=== PATIENT | female | born 1930 | race Caucasian/White ===

== ENCOUNTER 2016-05-29 16:57 | Inpatient (IN) | payer MEDICARE, BC ==
--- NOTE | 2016-05-29 17:45 | EDM.PDOC ---
ED HISTORY OF PRESENT ILLNESS - General Chief Complaint: Respiratory Problem Stated Complaint: UNK Time Seen by Provider: 05/29/16 17:25 Source of Information: Reports: Patient, EMS History Limitations: Reports: No limitations - History of Present Illness INITIAL COMMENTS - FREE TEXT/NARRATIVE: HISTORY AND PHYSICAL: History of present illness: Patient is an 85-year-old female is a resident [place] who presents today via ambulance for stated confusion and has difficulty breathing. I talked to the patient initially and she states "I was fine until my kids made me come in". She does admit that she is having some worsening shortness of breath. She also mentions sometimes when she is eating she feels like she has a bubble in her throat and she has to stop eating. She feels like she has some issue with her abdomen and hasn't had a bowel movement for a while. When family arrived son told me that [facility] and she seemed blue and he had to sit her up and get her to breathe through her nose. I think she has been using nasal cannula at the facility but she mostly breathes through her mouth. 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 The son states she also saw Dr. Randhawa this week and either was put on antibiotics her antibiotics were changed for a left lateral ankle pressure ulcer. Per Carlos, she is a code 3. Review of systems: As per history of present illness and below otherwise all systems reviewed and negative. Past medical history: As per history of present illness and as reviewed below otherwise noncontributory. Surgical history: As per history of present illness and as reviewed below otherwise noncontributory. Social history: No reported history of drug or alcohol abuse. Family history: As per history of present illness and as reviewed below otherwise noncontributory. Physical exam: HEENT: No evidence of trauma to the face or scalp. Pupils are equal and reactive. Moist mucous membranes. Lungs: Patient seems to be short of breath and speaks in short sentences. Coarse , wet breath sounds throughout. Heart:Regular rate and rhythm. Abdomen: Soft, nondistended, no significant tenderness. Pelvis: Stable nontender. Genitourinary: Deferred. Rectal: Deferred. Extremities: No pedal edema. Left lateral ankle decubitus ulcer. No cellulitis. Neuro: Awake, alert, oriented. No altered mental status per family and she was answering questions appropriately and had no apparent deficits. Diagnostics: CBC, CMP, UA, Chest xray, INR Therapeutics: Duoneb, zosyn, fluids Impression: Pneumonia Plan: I spoke with the Dr. Medrano about the patient and he was willing to admit her as inpatient. I talked to the family about this and the patient. The family was very on board with this plan and patient verbalized her consent as well. Definitive disposition and diagnosis as appropriate pending reevaluation and review of above. - Related Data Allergies/ADRs: Allergies Allergy/AdvReac Type Severity Reaction Status Date / Time aspirin Allergy Unknown Verified 11/23/15 12:19 betamethasone Allergy Unknown Verified 11/23/15 12:19 [From Celestone] betamethasone sodium Allergy Unknown Verified 11/23/15 12:19 phosphate [From Celestone] Latex, Natural Rubber Allergy Rash Verified 11/23/15 12:19 morphine Allergy Disorientat Verified 03/07/16 11:15 ion soluspan Allergy Other Uncoded 03/07/16 10:31 Home Meds: Home Meds Ascorbate Calcium [Vitamin C] 500 mg PO DAILY 08/15/13 [History] Calcium Carb & Citrate/Vit D3 [Calcium + Vitamin D3 Caplet] 2 each PO BID [History] Docusate Sodium [Colace] 100 mg PO BID 08/15/13 [History] Furosemide [Lasix] 40 mg PO DAILY 08/15/13 [History] Gabapentin [Neurontin] 600 mg PO BEDTIME 08/15/13 [History] Losartan [Cozaar] 100 mg PO DAILY 08/15/13 [History] MV-Mn/Iron/FA/Herbal Cmplx#190 [Vitamin D3 Complete Caplet] 1 each PO DAILY 12/19 [History] Potassium Gluconate [Potassium] 99 mg PO DAILY 08/15/13 [History] Sertraline [Zoloft] 100 mg PO BID 08/15/13 [History] Warfarin [Coumadin] 2.5 mg PO DAILY 08/15/13 [History] Spironolactone [Aldactone] 25 mg PO DAILY 10/08/13 [History] Metoprolol Tartrate [Lopressor] 25 mg PO BID 07/18/14 [History] Levothyroxine Sodium [Unithroid] 200 mcg PO ASDIRECTED 11/23/15 [History] Gabapentin [Neurontin] 300 mg PO DAILY 03/07/16 [History] Hydrocodone/Acetaminophen [Hydrocodon-Acetaminophn 10-325] 1 tab PO Q6H PRN [History] Levothyroxine Sodium 300 mcg PO ASDIRECTED 03/07/16 [History] Multivitamin with Minerals [Multiple Vitamin] 1 tab PO DAILY 03/07/16 [History] Mv-Mn/FA/Vit K/Lycop/Lut/Zeaxa [Ocuvite Eye + Multi Tablet] 1 each PO DAILY [History] fentaNYL [Fentanyl] 12 mcg TD ASDIRECTED PRN 03/07/16 [History] Albuterol [Ventolin HFA] 2 puff INH Q4H 05/29/16 [History] Azithromycin [IJD: Azithromycin] 250 mg PO BEDTIME 05/29/16 [History] Past Medical History Cardiovascular History: Reports: Afib, Pacemaker Respiratory History: Reports: Other (see below) Other Respiratory History: left upper lobe cancer Gastrointestinal History: Reports: Cholelithiasis, GERD 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 History: hepatitis unknown type 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: Musculoskeletal History: Reports: Fibromyalgia, Osteoarthritis, Osteoporosis, Other (see below) Other Musculoskeletal History: compression fx of back Psychiatric History: Reports: Anxiety Hematologic History: Reports: Other (see below) Other Hematologic History: un specified thromocytopenia Oncologic (Cancer) History: Reports: Lung - Infectious Disease History Infectious Disease History: Reports: Chicken pox, Measles, Mumps, Pertussis ( whooping cough), Other (see below) Other Infectious Disease History: infectious hepatitis - Past Surgical History GI Surgical History: Reports: Appendectomy, Cholecystectomy Female Surgical History: Reports: Hysterectomy Endocrine Surgical History: Reports: Thyroidectomy Musculoskeletal Surgical History: Reports: Hip replacement, Knee replacement Social & Family History - Family History Family Medical History: Noncontributory - Tobacco Use Smoking Status *Q: Never Smoker Years of Tobacco use: 17 Packs/Tins Daily: 0.2 Used Tobacco, but Quit: Yes Month Tobacco Last Used: 07/1987 Second Hand Smoke Exposure: No - Caffeine Use Caffeine Use: Reports: None - Alcohol Use Days Per Week of Alcohol Use: 0 - Recreational Drug Use Recreational Drug Use: No ED ROS GENERAL - Review of Systems Review Of Systems: ROS reveals no pertinent complaints other than HPI. ED EXAM, GENERAL - Physical Exam Exam: See Below (See HPI) Course - Vital Signs Last Recorded V/S: Last Vital Signs Temp 37.1 C 05/29/16 17:11 Pulse 80 05/29/16 19:24 Resp 18 05/29/16 19:24 BP 144/69 H 05/29/16 17:11 Pulse Ox 97 05/29/16 19:24 - Orders/Labs/Meds Orders: Active Orders 24 hr Category Date Time Status RT Aerosol Therapy [RC] ASDIRECTED Care 05/29/16 19:39 Ordered Chest 2V [CR] Stat Exams 05/29/16 17:35 Ordered INR,PT,PROTHROMBIN TIME [COAG] Stat Lab 05/29/16 19:38 Ordered Piperacillin/Tazobactam [Piperacil-Tazobact] 3.375 gm Med 05/29/16 19:39 Active Sodium Chloride 0.9% [Normal Saline] 50 ml IV ONETIME Sodium Chloride 0.9% [Normal Saline] 1,000 ml Med 05/29/16 19:45 Ordered IV STAT Medication Orders Piperacillin Sod/Tazobactam (Sod 3.375 gm/ Sodium Chloride) 50 mls @ 100 mls/ hr IV ONETIME ONE Stop: 05/29/16 20:08 Sodium Chloride (Normal Saline) 1,000 mls @ 500 mls/hr IV STAT BRANT Labs: Laboratory Tests 05/29/16 05/29/16 05/29/16 Range/Units 17:26 17:37 17:37 WBC 8.40 (4.0-11.0) K/uL RBC 3.80 L (4.30-5.90) M/uL Hgb 11.3 L (12.0-16.0) g/dL Hct 37.2 (36.0-46.0) % MCV 97.9 (80.0-98.0) fL MCH 29.7 (27.0-32.0) pg MCHC 30.4 L (31.0-37.0) g/dL RDW Std Deviation 60.1 (28.0-62.0) fl RDW Coeff of Ron 17 H (11.0-15.0) % Plt Count 123 L (150-400) K/uL MPV 10.60 (7.40-12.00) fL Neut % (Auto) 71.8 (48.0-80.0) % Lymph % (Auto) 13.5 L (16.0-40.0) % [place] % (Auto) 13.3 (0.0-15.0) % Eos % (Auto) 1.2 (0.0-7.0) % Baso % (Auto) 0.2 (0.0-1.5) % Neut # (Auto) 6.0 H (1.4-5.7) K/uL Lymph # (Auto) 1.1 (0.6-2.4) K/uL [place] # (Auto) 1.1 H (0.0-0.8) K/uL Eos # (Auto) 0.1 (0.0-0.7) K/uL Baso # (Auto) 0.0 (0.0-0.1) K/uL Nucleated RBC % 0.0 /100WBC Nucleated RBCs # 0 K/uL Lactate 1.0 (0.20-2.00) mmol/L Sodium (136-146) mmol/L Potassium (3.5-5.1) mmol/L Chloride (98-110) mmol/L Carbon Dioxide (21-31) mmol/L BUN (6.0-23.0) mg/dL Creatinine (0.6-1.5) mg/dL Est Cr Clr Drug Dosing Estimated GFR (MDRD) ml/min Glucose (60-110) mg/dL Calcium (8.8-10.8) mg/dL Total Bilirubin (0.1-1.5) mg/dL AST (5-40) IU/L ALT (8-54) IU/L Alkaline Phosphatase (40-150) Total Protein (6.0-8.0) g/dL Albumin (3.4-4.8) g/dL Globulin (2.0-3.5) g/dL Albumin/Globulin Ratio (1.3-2.8) Urine Color YELLOW Urine Appearance CLEAR Urine pH 5.5 (5.0-8.0) Ur Specific Shepherd 1.020 (1.001-1.035) Urine Protein NEGATIVE (NEGATIVE) mg/dL Urine Glucose (UA) NEGATIVE (NEGATIVE) mg/dL Urine Ketones NEGATIVE (NEGATIVE) mg/dL Urine Occult Blood NEGATIVE (NEGATIVE) Urine Nitrite NEGATIVE (NEGATIVE) Urine Bilirubin NEGATIVE (NEGATIVE) Urine Urobilinogen 0.2 (<2.0) EU/dL Ur Leukocyte Esterase NEGATIVE (NEGATIVE) Urine RBC 0-2 (0-2/HPF) Urine WBC 1-2 (0-5/HPF) Ur Epithelial Cells FEW (NONE-FEW) Urine Bacteria FEW (NEGATIVE) Hyaline Casts 1-2 (0-2/LPF) 05/29/16 Range/Units 17:37 WBC (4.0-11.0) K/uL RBC (4.30-5.90) M/uL Hgb (12.0-16.0) g/dL Hct (36.0-46.0) % MCV (80.0-98.0) fL MCH (27.0-32.0) pg MCHC (31.0-37.0) g/dL RDW Std Deviation (28.0-62.0) fl RDW Coeff of Ron (11.0-15.0) % Plt Count (150-400) K/uL MPV (7.40-12.00) fL Neut % (Auto) (48.0-80.0) % Lymph % (Auto) (16.0-40.0) % [place] % (Auto) (0.0-15.0) % Eos % (Auto) (0.0-7.0) % Baso % (Auto) (0.0-1.5) % Neut # (Auto) (1.4-5.7) K/uL Lymph # (Auto) (0.6-2.4) K/uL [place] # (Auto) (0.0-0.8) K/uL Eos # (Auto) (0.0-0.7) K/uL Baso # (Auto) (0.0-0.1) K/uL Nucleated RBC % /100WBC Nucleated RBCs # K/uL Lactate (0.20-2.00) mmol/L Sodium 143 (136-146) mmol/L Potassium 5.0 (3.5-5.1) mmol/L Chloride 102 (98-110) mmol/L Carbon Dioxide 32 H (21-31) mmol/L BUN 39 H (6.0-23.0) mg/dL Creatinine 0.8 (0.6-1.5) mg/dL Est Cr Clr Drug Dosing TNP Estimated GFR (MDRD) > 60.0 ml/min Glucose 97 (60-110) mg/dL Calcium 8.5 L (8.8-10.8) mg/dL Total Bilirubin 0.7 (0.1-1.5) mg/dL AST 19 (5-40) IU/L ALT 19 (8-54) IU/L Alkaline Phosphatase 65 (40-150) Total Protein 6.5 (6.0-8.0) g/dL Albumin 3.3 L (3.4-4.8) g/dL Globulin 3.2 (2.0-3.5) g/dL Albumin/Globulin Ratio 1.0 L (1.3-2.8) Urine Color Urine Appearance Urine pH (5.0-8.0) Ur Specific Shepherd (1.001-1.035) Urine Protein (NEGATIVE) mg/dL Urine Glucose (UA) (NEGATIVE) mg/dL Urine Ketones (NEGATIVE) mg/dL Urine Occult Blood (NEGATIVE) Urine Nitrite (NEGATIVE) Urine Bilirubin (NEGATIVE) Urine Urobilinogen (<2.0) EU/dL Ur Leukocyte Esterase (NEGATIVE) Urine RBC (0-2/HPF) Urine WBC (0-5/HPF) Ur Epithelial Cells (NONE-FEW) Urine Bacteria (NEGATIVE) Hyaline Casts (0-2/LPF) Meds: Medications Generic Name Dose Route Start Last Admin Trade Name Freq PRN Reason Stop Dose Admin Piperacillin Sod/Tazobactam 50 mls @ 100 mls/hr 05/29/16 19:39 Sod 3.375 gm/ Sodium Chloride IV 05/29/16 20:08 ONETIME ONE Sodium Chloride 1,000 mls @ 500 mls/hr 05/29/16 19:45 Normal Saline IV STAT BRANT Discontinued Medications Generic Name Dose Route Start Last Admin Trade Name Freq PRN Reason Stop Dose Admin Hydrocodone Bitart/Acetaminophen 1 tab 05/29/16 19:05 [place] 325-10 Mg PO 05/29/16 19:06 ONETIME ONE Albuterol/Ipratropium 3 ml 05/29/16 19:38 Duoneb 3.0-0.5 Mg/3 Ml NEB 05/29/16 19:39 ONETIME ONE Piperacillin Sod/Tazobactam 50 mls @ 100 mls/hr 05/29/16 19:35 Sod 3.375 gm/ Sodium Chloride IV 05/29/16 20:04 ONETIME ONE Departure - Departure Time of Disposition: 20:10 Disposition: Admitted As Inpatient 65 Condition: good Clinical Impression: Pneumonia Qualifiers: Pneumonia type: due to unspecified organism Laterality: bilateral Lung location : unspecified part of lung Qualified Code(s): J18.9 - Pneumonia, unspecified organism Forms: ED Department Discharge - My Orders Last 24 Hours: My Active Orders 05/29/16 17:35 Chest 2V [CR] Stat 05/29/16 19:38 INR,PT,PROTHROMBIN TIME [COAG] Stat 05/29/16 19:39 RT Aerosol Therapy [RC] ASDIRECTED Piperacillin/Tazobactam [Piperacil-Tazobact] 3.375 gm Sodium Chloride 0.9% [ Normal Saline] 50 ml IV ONETIME 05/29/16 19:45 Sodium Chloride 0.9% [Normal Saline] 1,000 ml IV STAT - Assessment/Plan Last 24 Hours: My Active Orders 05/29/16 17:35 Chest 2V [CR] Stat 05/29/16 19:38 INR,PT,PROTHROMBIN TIME [COAG] Stat 05/29/16 19:39 RT Aerosol Therapy [RC] ASDIRECTED Piperacillin/Tazobactam [Piperacil-Tazobact] 3.375 gm Sodium Chloride 0.9% [ Normal Saline] 50 ml IV ONETIME 05/29/16 19:45 Sodium Chloride 0.9% [Normal Saline] 1,000 ml IV STAT
[2016-05-29 18:13] LABS: CHLORIDE,CL 102 mmol/L (98-110); SODIUM,NA 143 mmol/L (136-146)
[2016-05-29] MEDS ORDERED: Acetaminophen/HYDROcodone 325-10 MG Tab PO ONE (19:05)
[2016-05-29] MEDS ORDERED: Piperacillin/Tazobactam 3.375 GM in Sodium Chloride 0.9% 50 ML IV ONE ×2 (19:35→19:39)
[2016-05-29] MEDS ORDERED: Albuterol/Ipratropium 3.0-0.5 MG/3 ML Neb Soln NEB ONE (19:38)
[2016-05-29] MEDS ORDERED: Sodium Chloride 0.9% 1,000 ML IV SCH (19:45)
--- NOTE | 2016-05-29 21:47 | PCM.HP ---
H&P History of Present Illness - General Date of Service: 05/29/16 Admit Problem/Dx: Admission Diagnosis/Problem Admission Diagnosis/Problem Pneumonia Source of Information: Patient, Family, Old records, RN - History of Present Illness Initial Comments - Free Text/Narative: She presented to the ED today from [facility] where she was noted to have a cough for over a week. She had "rattling breathing". She had sputum production. She was diagnosed in the ED with pneumonia. She was using oxygen at the senior living before presentation today. She is feeling a bit better already. - Related Data Allergies/Adverse Reactions: Allergies Allergy/AdvReac Type Severity Reaction Status Date / Time aspirin Allergy Unknown Verified 11/23/15 12:19 betamethasone Allergy Unknown Verified 11/23/15 12:19 [From Celestone] betamethasone sodium Allergy Unknown Verified 11/23/15 12:19 phosphate [From Celestone] Latex, Natural Rubber Allergy Rash Verified 11/23/15 12:19 morphine Allergy Disorientat Verified 03/07/16 11:15 ion soluspan Allergy Other Uncoded 03/07/16 10:31 Home Medications: Home Meds Ascorbate Calcium [Vitamin C] 500 mg PO DAILY 08/15/13 [History] Calcium Carb & Citrate/Vit D3 [Calcium + Vitamin D3 Caplet] 2 each PO BID [History] Docusate Sodium [Colace] 100 mg PO BID 08/15/13 [History] Furosemide [Lasix] 40 mg PO DAILY 08/15/13 [History] Gabapentin [Neurontin] 600 mg PO BEDTIME 08/15/13 [History] Losartan [Cozaar] 100 mg PO DAILY 08/15/13 [History] MV-Mn/Iron/FA/Herbal Cmplx#190 [Vitamin D3 Complete Caplet] 1 each PO DAILY 12/19 [History] Potassium Gluconate [Potassium] 99 mg PO DAILY 08/15/13 [History] Sertraline [Zoloft] 100 mg PO BID 08/15/13 [History] Warfarin [Coumadin] 2.5 mg PO DAILY 08/15/13 [History] Spironolactone [Aldactone] 25 mg PO DAILY 10/08/13 [History] Metoprolol Tartrate [Lopressor] 25 mg PO BID 07/18/14 [History] Levothyroxine Sodium [Unithroid] 200 mcg PO ASDIRECTED 11/23/15 [History] Gabapentin [Neurontin] 300 mg PO DAILY 03/07/16 [History] Hydrocodone/Acetaminophen [Hydrocodon-Acetaminophn 10-325] 1 tab PO Q6H PRN [History] Levothyroxine Sodium 300 mcg PO ASDIRECTED 03/07/16 [History] Multivitamin with Minerals [Multiple Vitamin] 1 tab PO DAILY 03/07/16 [History] Mv-Mn/FA/Vit K/Lycop/Lut/Zeaxa [Ocuvite Eye + Multi Tablet] 1 each PO DAILY [History] fentaNYL [Fentanyl] 12 mcg TD ASDIRECTED PRN 03/07/16 [History] Albuterol [Ventolin HFA] 2 puff INH Q4H 05/29/16 [History] Azithromycin [IJD: Azithromycin] 250 mg PO BEDTIME 05/29/16 [History] Past Medical History Cardiovascular History: Reports: Afib, Pacemaker Respiratory History: Reports: Other (see below) Other Respiratory History: left upper lobe cancer Gastrointestinal History: Reports: Cholelithiasis, GERD 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 History: hepatitis unknown type 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: Musculoskeletal History: Reports: Fibromyalgia, Osteoarthritis, Osteoporosis, Other (see below) Other Musculoskeletal History: compression fx of back Neurological History: Denies: Alzheimers disease, CVA, Headaches, chronic, Parkinson's, Seizure Psychiatric History: Reports: Anxiety Endocrine/Metabolic History: Denies: Kiko's disease, Diabetes, type I, Diabetes, type II Hematologic History: Reports: Other (see below) Other Hematologic History: un specified thromocytopenia Oncologic (Cancer) History: Reports: Lung - Infectious Disease History Infectious Disease History: Reports: Chicken pox, Measles, Mumps, Pertussis ( whooping cough), Other (see below) Other Infectious Disease History: infectious hepatitis - Past Surgical History GI Surgical History: Reports: Appendectomy, Cholecystectomy Female Surgical History: Reports: Hysterectomy Endocrine Surgical History: Reports: Thyroidectomy Musculoskeletal Surgical History: Reports: Hip replacement, Knee replacement Social & Family History - Family History Family Medical History: Noncontributory - Tobacco Use Smoking Status *Q: Never Smoker Years of Tobacco use: 17 Packs/Tins Daily: 0.2 Used Tobacco, but Quit: Yes Month Tobacco Last Used: 07/1987 Second Hand Smoke Exposure: No - Caffeine Use Caffeine Use: Reports: None - Alcohol Use Days Per Week of Alcohol Use: 0 - Recreational Drug Use Recreational Drug Use: No H&P Review of Systems - Review of Systems: Review Of Systems: See Below General: Denies: fever Pulmonary: Reports: Wheezing, Cough, Sputum Cardiovascular: Denies: chest pain Gastrointestinal: Reports: Decreased appetite. Denies: Abdominal pain, Diarrhea , Distension, Flatus, Hematemesis, Hematochezia Genitourinary: Denies: dysuria, hematuria Skin: Denies: cyanosis, jaundice Neurological: Reports: Confusion (she was confused earlier today but is not usually confused. She has no known history of dementia) Review of Systems Comment:: no vomiting Exam - Exam Exam: See Below - Vital Signs Vital Signs: Last Vital Signs Temp 98.8 F 05/29/16 17:11 Pulse 86 05/29/16 20:20 Resp 18 05/29/16 20:20 BP 142/65 H 05/29/16 20:20 Pulse Ox 100 05/29/16 20:20 Weight: 100.698 kg - Exam General: alert, cooperative. No: moderate distress HEENT: EOMI Neck: supple, trachea midline Lungs: Rales, Rhonchi Cardiovascular: regular rate, regular rhythm. No: systolic murmur Abdomen: soft. No: rebound, tenderness (Female) Exam: Deferred Rectal (Female) Exam: Deferred Extremities: other (3x4 cm ulcer left lateral calf that appears clean . It is down to the muscular layer. ). No: edema Neurological: cranial nerves intact, normal speech Neuro Extensive - Motor, Sensory, Reflexes: No: facial palsy (L), facial palsy ( R), hemiplagia (L), hemiplagia (R) - Patient Data Result Diagrams: 05/29/16 17:37 05/29/16 17:37 Reece Results last 24 hrs: CXR: pacemaker noted right sided infiltrate *Q Meaningful Use (ADM) - VTE *Q VTE Criteria *Q: - Stroke *Q Stroke Criteria *Q: - AMI *Q AMI Criteria *Q: - Problem List (1) Pneumonia SNOMED Code(s): 545158175 ICD Code: J18.9 - PNEUMONIA, UNSPECIFIED ORGANISM Status: Acute Current Visit: Yes Qualifiers: Pneumonia type: due to unspecified organism Laterality: bilateral Lung location: unspecified part of lung Qualified Code(s): J18.9 - Pneumonia, unspecified organism (2) Stasis ulcer Status: Acute Current Visit: Yes Problem List Initiated/Reviewed/Updated: Yes Orders Last 24hrs: Medication Orders Sodium Chloride (Normal Saline) 1,000 mls @ 500 mls/hr IV STAT BRANT Last Admin: 05/29/16 20:06 Dose: 500 mls/hr Assessment/Plan Comment:: admit see orders I confirmed code level III status with son and daughter in law. Edvin Medrano MD
[2016-05-29] MEDS ORDERED: Docusate Sodium 100 MG Cap PO PRN (21:49)
[2016-05-29] MEDS ORDERED: Acetaminophen 325 MG Tab PO PRN (21:49)
[2016-05-29] MEDS ORDERED: Temazepam 15 MG Cap PO PRN (21:49)
[2016-05-29] MEDS ORDERED: Ondansetron 4 MG Tab.DIS PO PRN (21:49)
[2016-05-29] MEDS ORDERED: Bisacodyl 5 MG Tab PO PRN (21:49)
[2016-05-29] MEDS ORDERED: Non-Formulary Medication 1 Each (Hydrocodone/Acetaminophen 1 TAB) PO PRN (21:53)
[2016-05-29] MEDS ORDERED: Non-Formulary Medication 1 Each (Fentanyl [Fentanyl] 12 MCG) TD PRN (21:53)
[2016-05-29] MEDS ORDERED: LEVOTHYROXINE SODIUM 200 MCG PO SCH (22:00)
[2016-05-29] MEDS ORDERED: Acetaminophen/HYDROcodone 325-10 MG Tab PO PRN (22:17)
[2016-05-29] MEDS: Levofloxacin/Dextrose 5%-Water 750 MG in Premix Bag 1 BAG IV SCH (23:32)
[2016-05-29] MEDS: Albuterol/Ipratropium 3.0-0.5 MG/3 ML Neb Soln NEB SCH (23:32)
[2016-05-30] MEDS: Vancomycin 1.5 GM in Sodium Chloride 0.9% 500 ML IV SCH ×3 (01:11→23:14)
[2016-05-30] MEDS: Albuterol/Ipratropium 3.0-0.5 MG/3 ML Neb Soln NEB SCH ×6 (03:09→23:05)
[2016-05-30] MEDS: Piperacillin/Tazobactam 3.375 GM in Sodium Chloride 0.9% 50 ML IV SCH ×4 (03:10→20:39)
[2016-05-30] MEDS: Levothyroxine 100 MCG Tab PO SCH (07:00)
[2016-05-30 07:26] LABS: CHLORIDE,CL 105 mmol/L (98-110); SODIUM,NA 144 mmol/L (136-146)
[2016-05-30] MEDS: Sertraline 100 MG Tab PO SCH ×2 (08:49→20:43)
[2016-05-30] MEDS: Gabapentin 300 MG Cap PO SCH (08:49)
[2016-05-30] MEDS: Furosemide 40 MG Tab PO SCH (08:49)
[2016-05-30] MEDS: Spironolactone 25 MG Tab PO SCH (08:49)
[2016-05-30] MEDS: Beta-Carotene (Vitamin A) w/Vitamin C & E plus Minerals Tab PO SCH (08:49)
[2016-05-30] MEDS: Docusate Sodium 100 MG Cap PO SCH ×2 (08:50→20:43)
[2016-05-30] MEDS: Losartan 50 MG Tab PO SCH (08:51)
[2016-05-30] MEDS ORDERED: Non-Formulary Medication 1 Each (Losartan 100 MG) PO SCH (09:00)
[2016-05-30] MEDS ORDERED: Non-Formulary Medication 1 Each (Potassium Gluconate [Potassium] 99 MG) PO SCH (09:00)
[2016-05-30] MEDS ORDERED: [UNRECOGNIZED DRUG - OTHER] PO SCH (09:00)
[2016-05-30] MEDS: Potassium Gluconate [Potassium] 99 MG PO SCH (11:06)
--- NOTE | 2016-05-30 13:07 | PCM.PN ---
- General Info Date of Service: 05/30/16 Subjective Update: she is more short of breath. There is some concern that she might be at increased risk of aspiration. - Patient Data Vitals - most recent: Last Vital Signs Temp 96.0 F 05/30/16 11:48 Pulse 89 05/30/16 11:48 Resp 18 05/30/16 11:48 BP 144/45 H 05/30/16 11:48 Pulse Ox 96 05/30/16 11:48 Weight - most recent: 100.69 kg I&O - last 24 hours: Intake & Output 05/29/16 05/30/16 05/30/16 22:59 06:59 14:59 Intake Total 1050 750 550 Balance 1050 750 550 Lab Results last 24 hrs: Laboratory Results - last 24 hr 05/30/16 05/30/16 05/30/16 Range/Units 06:38 06:38 06:38 WBC 7.33 (4.0-11.0) K/uL RBC 3.61 L (4.30-5.90) M/uL Hgb 10.5 L (12.0-16.0) g/dL Hct 35.6 L (36.0-46.0) % MCV 98.6 H (80.0-98.0) fL MCH 29.1 (27.0-32.0) pg MCHC 29.5 L (31.0-37.0) g/dL RDW Std Deviation 59.7 (28.0-62.0) fl RDW Coeff of Ron 17 H (11.0-15.0) % Plt Count 113 L (150-400) K/uL MPV 10.40 (7.40-12.00) fL Neut % (Auto) 74.9 (48.0-80.0) % Lymph % (Auto) 12.0 L (16.0-40.0) % [place] % (Auto) 12.0 (0.0-15.0) % Eos % (Auto) 0.8 (0.0-7.0) % Baso % (Auto) 0.3 (0.0-1.5) % Neut # (Auto) 5.5 (1.4-5.7) K/uL Lymph # (Auto) 0.9 (0.6-2.4) K/uL [place] # (Auto) 0.9 H (0.0-0.8) K/uL Eos # (Auto) 0.1 (0.0-0.7) K/uL Baso # (Auto) 0.0 (0.0-0.1) K/uL Nucleated RBC % 0.0 /100WBC Nucleated RBCs # 0 K/uL INR 1.50 H (0.86-1.11) Sodium 144 (136-146) mmol/L Potassium 4.4 (3.5-5.1) mmol/L Chloride 105 (98-110) mmol/L Carbon Dioxide 30 (21-31) mmol/L BUN 33 H (6.0-23.0) mg/dL Creatinine 0.7 (0.6-1.5) mg/dL Est Cr Clr Drug Dosing 47.70 mL/min Estimated GFR (MDRD) > 60.0 ml/min Glucose 88 (60-110) mg/dL Calcium 8.2 L (8.8-10.8) mg/dL Magnesium 1.5 (1.5-2.3) mEq/L Total Bilirubin 0.7 (0.1-1.5) mg/dL AST 17 (5-40) IU/L ALT 17 (8-54) IU/L Alkaline Phosphatase 59 (40-150) Total Protein 6.0 (6.0-8.0) g/dL Albumin 3.1 L (3.4-4.8) g/dL Globulin 2.9 (2.0-3.5) g/dL Albumin/Globulin Ratio 1.1 L (1.3-2.8) Free T4 0.89 (0.7-1.48) ng/dL TSH 3rd Generation 0.71 (0.47-5.0) uIU/mL Reece Results last 24 hrs: Microbiology 05/30/16 01:00 Gram Stain - Preliminary Sputum - Expectorated Med Orders - Current: Current Medications Acetaminophen (Tylenol) 650 mg PO Q4H PRN PRN Reason: Pain (Mild 1-3)/fever Hydrocodone Bitart/Acetaminophen ([place] 325-10 Mg) 1 tab PO Q6H PRN PRN Reason: pain Albuterol/Ipratropium (Duoneb 3.0-0.5 Mg/3 Ml) 3 ml NEB Q4H [facility] Last Admin: 05/30/16 11:45 Dose: 3 ml Bisacodyl (Dulcolax) 5 mg PO DAILY PRN PRN Reason: Constipation Docusate Sodium (Colace) 100 mg PO BID PRN PRN Reason: Constipation Docusate Sodium (Colace) 100 mg PO BID [facility] Last Admin: 05/30/16 08:50 Dose: 100 mg Fentanyl (Duragesic) 12 mcg TRDERM Q72H PRN PRN Reason: Pain Furosemide (Lasix) 40 mg PO DAILY [facility] Last Admin: 05/30/16 08:49 Dose: 40 mg Furosemide (Lasix) 60 mg IVPUSH NOW ONE Stop: 05/30/16 13:04 Gabapentin (Neurontin) 300 mg PO DAILY [facility] Last Admin: 05/30/16 08:49 Dose: 300 mg Levofloxacin/Dextrose 750 mg/ (Premix) 150 mls @ 100 mls/hr IV Q24H [facility] Last Admin: 05/29/16 23:32 Dose: 100 mls/hr Piperacillin Sod/Tazobactam (Sod 3.375 gm/ Sodium Chloride) 50 mls @ 100 mls/ hr IV Q6H [facility] Last Admin: 05/30/16 08:50 Dose: 100 mls/hr Vancomycin HCl 1.5 gm/ Sodium (Chloride) 500 mls @ 333 mls/hr IV Q12H [facility] Last Admin: 05/30/16 11:18 Dose: 333 mls/hr Levothyroxine Sodium (Synthroid) 200 mcg PO SuMoTuWeThSa@0730 [facility] Last Admin: 05/30/16 07:00 Dose: 200 mcg Levothyroxine Sodium (Synthroid) 300 mcg PO Fr@0730 [facility] Losartan Potassium (Cozaar) 100 mg PO DAILY [facility] Last Admin: 05/30/16 08:51 Dose: 100 mg Multivitamins/Minerals (Prosight) 1 tab PO DAILY [facility] Last Admin: 05/30/16 08:49 Dose: 1 tab Ondansetron HCl (Zofran Odt) 4 mg PO Q4H PRN PRN Reason: nausea, able to take PO Last Admin: 05/30/16 07:06 Dose: 4 mg Potassium Gluconate ([Potassium] 99 Mg) 99 each PO DAILY [facility] Last Admin: 05/30/16 11:06 Dose: Not Given Sertraline HCl (Zoloft) 100 mg PO BID [facility] Last Admin: 05/30/16 08:49 Dose: 100 mg Spironolactone (Aldactone) 25 mg PO DAILY [facility] Last Admin: 05/30/16 08:49 Dose: 25 mg Temazepam (Restoril) 15 mg PO BEDTIME PRN PRN Reason: Sleep Vancomycin HCl (Pharmacy To Dose - Vancomycin) 1 dose .XX ASDIRECTED [facility] Warfarin Sodium (Coumadin) 2.5 mg PO DAILY@1400 [facility] Discontinued Medications Hydrocodone Bitart/Acetaminophen ([place] 325-10 Mg) 1 tab PO ONETIME ONE Stop: 05/29/16 19:06 Last Admin: 05/29/16 20:27 Dose: Not Given Albuterol/Ipratropium (Duoneb 3.0-0.5 Mg/3 Ml) 3 ml NEB ONETIME ONE Stop: 05/29/16 19:39 Last Admin: 05/29/16 19:58 Dose: 3 ml Piperacillin Sod/Tazobactam (Sod 3.375 gm/ Sodium Chloride) 50 mls @ 100 mls/ hr IV ONETIME ONE Stop: 05/29/16 20:04 Last Admin: 05/29/16 21:10 Dose: Not Given Piperacillin Sod/Tazobactam (Sod 3.375 gm/ Sodium Chloride) 50 mls @ 100 mls/ hr IV ONETIME ONE Stop: 05/29/16 20:08 Last Admin: 05/29/16 20:05 Dose: 100 mls/hr Sodium Chloride (Normal Saline) 1,000 mls @ 500 mls/hr IV STAT [facility] Last Admin: 05/29/16 20:06 Dose: 500 mls/hr Non-Formulary Medication (Levothyroxine Sodium) 200 mcg PO ASDIRECTED [facility] Non-Formulary Medication (Potassium Gluconate [Potassium]) 99 mg PO DAILY [facility] Last Admin: 05/30/16 11:05 Dose: Not Given Non-Formulary Medication (Fentanyl [Fentanyl]) 12 mcg TD ASDIRECTED PRN PRN Reason: Pain - Exam Quality Assessment: supplemental oxygen General: lethargic, other (conversant) Neck: JVD Lungs: Rales, Rhonchi, Other (increased work of breathing; prolongation of expiration) Cardiovascular: Regular Rate, Regular Rhythm Abdomen: soft. No: no tenderness Extremities: other (2 plus LE edema) Neurological: normal speech Psy/Mental Status: No: agitated - Problem List & Annotations (1) Pneumonia SNOMED Code(s): 702687392 Code(s): J18.9 - PNEUMONIA, UNSPECIFIED ORGANISM Status: Acute Current Visit: Yes Qualifiers: Pneumonia type: due to unspecified organism Laterality: bilateral Lung location: unspecified part of lung Qualified Code(s): J18.9 - Pneumonia, unspecified organism (2) Stasis ulcer Status: Acute Current Visit: Yes - Problem List Review Problem List Initiated/Reviewed/Updated: Yes - My Orders Last 24 Hours: My Active Orders 05/29/16 21:49 Oxygen Therapy [RC] PRN Vital Signs [RC] Q4H Acetaminophen [Tylenol] 650 mg PO Q4H PRN Bisacodyl [Dulcolax] 5 mg PO DAILY PRN Docusate Sodium [Colace] 100 mg PO BID PRN Ondansetron [Zofran ODT] 4 mg PO Q4H PRN Temazepam [Restoril] 15 mg PO BEDTIME PRN Resuscitation Status Routine 05/29/16 21:58 Communication Order [RC] PER UNIT ROUTINE 05/29/16 22:00 Levofloxacin/Dextrose 5%-Water [Levaquin in D5W 750 MG/150 ML] 750 mg Premix Bag 1 bag IV Q24H Vancomycin Pharmacy to Dose [Pharmacy to Dose - Vancomycin] 1 dose .XX ASDIRECTED 05/29/16 22:08 RT Aerosol Therapy [RC] ASDIRECTED CULTURE SPUTUM + SMEAR [RM] Stat 05/29/16 22:15 Albuterol/Ipratropium [DuoNeb 3.0-0.5 MG/3 ML] 3 ml NEB Q4H 05/29/16 22:17 Acetaminophen/HYDROcodone [[place] 325-10 MG] 1 tab PO Q6H PRN 05/29/16 23:30 Vancomycin 1.5 gm Sodium Chloride 0.9% [Normal Saline] 500 ml IV Q12H 05/30/16 03:00 Piperacillin/Tazobactam [Piperacil-Tazobact] 3.375 gm Sodium Chloride 0.9% [ Normal Saline] 50 ml IV Q6H 05/30/16 07:30 Levothyroxine [Synthroid] 200 mcg PO SuMoTuWeThSa@0730 05/30/16 09:00 Beta-Carotene(A) w/C & E/Min [Prosight] 1 tab PO DAILY Docusate Sodium [Colace] 100 mg PO BID Furosemide [Lasix] 40 mg PO DAILY Gabapentin [Neurontin] 300 mg PO DAILY Losartan [Cozaar] 100 mg PO DAILY Sertraline [Zoloft] 100 mg PO BID Spironolactone [Aldactone] 25 mg PO DAILY 05/30/16 09:30 Patient's Own Medication [Ptom] 99 each PO DAILY 05/30/16 12:55 B-TYPE NATRIURETIC PEPTIDE,BNP [CHEM] Routine 05/30/16 13:03 Furosemide [Lasix] 60 mg IVPUSH NOW ONE 05/30/16 14:00 Warfarin [Coumadin] 2.5 mg PO DAILY@1400 05/30/16 Lunch Pureed Diet [DIET] 05/31/16 05:11 B-TYPE NATRIURETIC PEPTIDE,BNP [CHEM] AM BASIC METABOLIC PANEL,BMP [CHEM] AM CBC WITH AUTO DIFF [HEME] AM INR,PT,PROTHROMBIN TIME [COAG] AM 05/31/16 06:00 fentaNYL [Duragesic] 12 mcg TRDERM Q72H PRN 05/31/16 10:30 VANCOMYCIN TROUGH [CHEM] Routine 06/01/16 05:11 BASIC METABOLIC PANEL,BMP [CHEM] AM CBC WITH AUTO DIFF [HEME] AM INR,PT,PROTHROMBIN TIME [COAG] AM 06/01/16 08:00 Echo 2D wo Cont [US] Urgent 06/02/16 05:11 BASIC METABOLIC PANEL,BMP [CHEM] AM CBC WITH AUTO DIFF [HEME] AM 06/05/16 07:30 Levothyroxine [Synthroid] 300 mcg PO Fr@0730 - Plan Plan:: admit see orders I confirmed code level III status with son and daughter in law. Edvin Medrano MD 05/30/2016 I am concerned that she may have pulmonary edema echo ordered lasix 60 mg IV now monitor lab aspiration precautions steroids Annalisa Medrano MD
[2016-05-30] MEDS ORDERED: Furosemide 40 MG/4 ML VIAL IVPUSH ONE (13:08)
[2016-05-30] MEDS: Warfarin 2.5 MG Tab PO SCH (13:33)
[2016-05-30] MEDS: methylPREDNISolone Sodium Succinate 125 MG/2 ML SDV IVPUSH SCH ×2 (13:33→20:43)
[2016-05-30] MEDS: Levofloxacin/Dextrose 5%-Water 750 MG in Premix Bag 1 BAG IV SCH (21:34)
[2016-05-31] MEDS: Albuterol/Ipratropium 3.0-0.5 MG/3 ML Neb Soln NEB SCH ×6 (01:44→21:33)
[2016-05-31] MEDS: Piperacillin/Tazobactam 3.375 GM in Sodium Chloride 0.9% 50 ML IV SCH ×4 (02:31→21:59)
[2016-05-31] MEDS: methylPREDNISolone Sodium Succinate 125 MG/2 ML SDV IVPUSH SCH ×3 (06:01→21:59)
[2016-05-31] MEDS: fentaNYL 12 MCG/HR Transdermal Patch TRDERM SCH (06:03)
[2016-05-31] MEDS: Levothyroxine 100 MCG Tab PO SCH (07:08)
[2016-05-31 07:25] LABS: CHLORIDE,CL 103 mmol/L (98-110); SODIUM,NA 147 mmol/L (136-146)
[2016-05-31] MEDS: Furosemide 40 MG Tab PO SCH (08:51)
[2016-05-31] MEDS: Spironolactone 25 MG Tab PO SCH (08:51)
[2016-05-31] MEDS: Docusate Sodium 100 MG Cap PO SCH ×2 (08:51→22:00)
[2016-05-31] MEDS: Beta-Carotene (Vitamin A) w/Vitamin C & E plus Minerals Tab PO SCH (08:51)
[2016-05-31] MEDS: Sertraline 100 MG Tab PO SCH ×2 (08:52→22:03)
[2016-05-31] MEDS: Losartan 50 MG Tab PO SCH (08:52)
[2016-05-31] MEDS: Gabapentin 300 MG Cap PO SCH (08:52)
[2016-05-31] MEDS: Potassium Gluconate [Potassium] 99 MG PO SCH (09:04)
[2016-05-31] MEDS: Warfarin 2.5 MG Tab PO SCH (13:10)
[2016-05-31] MEDS ORDERED: Magnesium Sulfate/Water 4 GM in Premix Bag 1 BAG IV ONE (14:36)
--- NOTE | 2016-05-31 15:06 | PCM.PN ---
- General Info Date of Service: 05/31/16 Subjective Update: She denies pain. She feels "uncomfortable". She aches a little lunch. The nurse reports that she drank some thickened water without any coughing. - Patient Data Vitals - most recent: Last Vital Signs Temp 97.8 F 05/31/16 12:00 Pulse 84 05/31/16 12:00 Resp 22 H 05/31/16 12:00 BP 148/68 H 05/31/16 12:00 Pulse Ox 91 L 05/31/16 12:00 Weight - most recent: 92.079 kg I&O - last 24 hours: Intake & Output 05/31/16 05/31/16 05/31/16 06:59 14:59 22:59 Intake Total 700 400 Balance 700 400 Lab Results last 24 hrs: Laboratory Results - last 24 hr 05/31/16 05/31/16 05/31/16 Range/Units 06:25 06:25 06:25 WBC 4.43 (4.0-11.0) K/uL RBC 3.74 L (4.30-5.90) M/uL Hgb 11.0 L (12.0-16.0) g/dL Hct 36.3 (36.0-46.0) % MCV 97.1 (80.0-98.0) fL MCH 29.4 (27.0-32.0) pg MCHC 30.3 L (31.0-37.0) g/dL RDW Std Deviation 57.0 (28.0-62.0) fl RDW Coeff of Ron 16 H (11.0-15.0) % Plt Count 112 L (150-400) K/uL MPV 10.40 (7.40-12.00) fL Neut % (Auto) 83.1 H (48.0-80.0) % Lymph % (Auto) 11.3 L (16.0-40.0) % [place] % (Auto) 5.6 (0.0-15.0) % Eos % (Auto) 0.0 (0.0-7.0) % Baso % (Auto) 0.0 (0.0-1.5) % Neut # (Auto) 3.7 (1.4-5.7) K/uL Lymph # (Auto) 0.5 L (0.6-2.4) K/uL [place] # (Auto) 0.3 (0.0-0.8) K/uL Eos # (Auto) 0.0 (0.0-0.7) K/uL Baso # (Auto) 0.0 (0.0-0.1) K/uL Nucleated RBC % 0.0 /100WBC Nucleated RBCs # 0 K/uL INR 2.15 H (0.86-1.11) Sodium (136-146) mmol/L Potassium (3.5-5.1) mmol/L Chloride (98-110) mmol/L Carbon Dioxide (21-31) mmol/L BUN (6.0-23.0) mg/dL Creatinine (0.6-1.5) mg/dL Est Cr Clr Drug Dosing mL/min Estimated GFR (MDRD) ml/min Glucose (60-110) mg/dL Calcium (8.8-10.8) mg/dL Magnesium (1.5-2.3) mEq/L B-Natriuretic Peptide 714 H (<100) PG/ML Vancomycin Trough (5-15) ug/mL 05/31/16 05/31/16 Range/Units 06:25 10:49 WBC (4.0-11.0) K/uL RBC (4.30-5.90) M/uL Hgb (12.0-16.0) g/dL Hct (36.0-46.0) % MCV (80.0-98.0) fL MCH (27.0-32.0) pg MCHC (31.0-37.0) g/dL RDW Std Deviation (28.0-62.0) fl RDW Coeff of Ron (11.0-15.0) % Plt Count (150-400) K/uL MPV (7.40-12.00) fL Neut % (Auto) (48.0-80.0) % Lymph % (Auto) (16.0-40.0) % [place] % (Auto) (0.0-15.0) % Eos % (Auto) (0.0-7.0) % Baso % (Auto) (0.0-1.5) % Neut # (Auto) (1.4-5.7) K/uL Lymph # (Auto) (0.6-2.4) K/uL [place] # (Auto) (0.0-0.8) K/uL Eos # (Auto) (0.0-0.7) K/uL Baso # (Auto) (0.0-0.1) K/uL Nucleated RBC % /100WBC Nucleated RBCs # K/uL INR (0.86-1.11) Sodium 147 H (136-146) mmol/L Potassium 3.7 (3.5-5.1) mmol/L Chloride 103 (98-110) mmol/L Carbon Dioxide 30 (21-31) mmol/L BUN 28 H (6.0-23.0) mg/dL Creatinine 0.8 (0.6-1.5) mg/dL Est Cr Clr Drug Dosing 41.74 mL/min Estimated GFR (MDRD) > 60.0 ml/min Glucose 110 (60-110) mg/dL Calcium 7.9 L (8.8-10.8) mg/dL Magnesium 1.3 L (1.5-2.3) mEq/L B-Natriuretic Peptide (<100) PG/ML Vancomycin Trough 26.1 H (5-15) ug/mL Reece Results last 24 hrs: Microbiology 05/30/16 01:00 Gram Stain - Final Sputum - Expectorated Sputum Culture - Final Normal Respiratory Mary Lou YEAST Med Orders - Current: Current Medications Acetaminophen (Tylenol) 650 mg PO Q4H PRN PRN Reason: Pain (Mild 1-3)/fever Last Admin: 05/30/16 23:27 Dose: 650 mg Hydrocodone Bitart/Acetaminophen ([place] 325-10 Mg) 1 tab PO Q6H PRN PRN Reason: pain Albuterol/Ipratropium (Duoneb 3.0-0.5 Mg/3 Ml) 3 ml NEB Q4H [facility] Last Admin: 05/31/16 13:20 Dose: 3 ml Bisacodyl (Dulcolax) 5 mg PO DAILY PRN PRN Reason: Constipation Docusate Sodium (Colace) 100 mg PO BID PRN PRN Reason: Constipation Docusate Sodium (Colace) 100 mg PO BID [facility] Last Admin: 05/31/16 08:51 Dose: 100 mg Fentanyl (Duragesic) 12 mcg TRDERM Q72H [facility] Last Admin: 05/31/16 06:03 Dose: 12 mcg Furosemide (Lasix) 40 mg PO DAILY [facility] Last Admin: 05/31/16 08:51 Dose: 40 mg Gabapentin (Neurontin) 300 mg PO DAILY [facility] Last Admin: 05/31/16 08:52 Dose: 300 mg Levofloxacin/Dextrose 750 mg/ (Premix) 150 mls @ 100 mls/hr IV Q24H [facility] Last Admin: 05/30/16 21:34 Dose: 100 mls/hr Piperacillin Sod/Tazobactam (Sod 3.375 gm/ Sodium Chloride) 50 mls @ 100 mls/ hr IV Q6H [facility] Last Admin: 05/31/16 15:03 Dose: 100 mls/hr Vancomycin HCl 1,250 mg/ (Sodium Chloride) 250 mls @ 166.512 mls/hr IV Q12H [facility] Last Admin: 05/31/16 11:41 Dose: 166.512 mls/hr Magnesium Sulfate 4 gm/ Premix 100 mls @ 25 mls/hr IV ONETIME ONE Stop: 05/31/16 18:35 Last Admin: 05/31/16 14:53 Dose: 25 mls/hr Levothyroxine Sodium (Synthroid) 200 mcg PO SuMoTuWeThSa@0730 [facility] Last Admin: 05/31/16 07:08 Dose: 200 mcg Levothyroxine Sodium (Synthroid) 300 mcg PO Fr@0730 [facility] Losartan Potassium (Cozaar) 100 mg PO DAILY [facility] Last Admin: 05/31/16 08:52 Dose: 100 mg Methylprednisolone Sodium Succinate (Solu-Medrol) 125 mg IVPUSH Q8H [facility] Last Admin: 05/31/16 13:10 Dose: 125 mg Multivitamins/Minerals (Prosight) 1 tab PO DAILY [facility] Last Admin: 05/31/16 08:51 Dose: 1 tab Ondansetron HCl (Zofran Odt) 4 mg PO Q4H PRN PRN Reason: nausea, able to take PO Last Admin: 05/30/16 07:06 Dose: 4 mg Potassium Gluconate ([Potassium] 99 Mg) 99 each PO DAILY [facility] Last Admin: 05/31/16 09:04 Dose: Not Given Sertraline HCl (Zoloft) 100 mg PO BID [facility] Last Admin: 05/31/16 08:52 Dose: 100 mg Spironolactone (Aldactone) 25 mg PO DAILY [facility] Last Admin: 05/31/16 08:51 Dose: 25 mg Temazepam (Restoril) 15 mg PO BEDTIME PRN PRN Reason: Sleep Vancomycin HCl (Pharmacy To Dose - Vancomycin) 1 dose .XX ASDIRECTED [facility] Warfarin Sodium (Coumadin) 2.5 mg PO DAILY@1400 [facility] Last Admin: 05/31/16 13:10 Dose: 2.5 mg Discontinued Medications Hydrocodone Bitart/Acetaminophen ([place] 325-10 Mg) 1 tab PO ONETIME ONE Stop: 05/29/16 19:06 Last Admin: 05/29/16 20:27 Dose: Not Given Albuterol/Ipratropium (Duoneb 3.0-0.5 Mg/3 Ml) 3 ml NEB ONETIME ONE Stop: 05/29/16 19:39 Last Admin: 05/29/16 19:58 Dose: 3 ml Furosemide (Lasix) 60 mg IVPUSH NOW ONE Stop: 05/30/16 13:09 Last Admin: 05/30/16 13:33 Dose: 60 mg Piperacillin Sod/Tazobactam (Sod 3.375 gm/ Sodium Chloride) 50 mls @ 100 mls/ hr IV ONETIME ONE Stop: 05/29/16 20:04 Last Admin: 05/29/16 21:10 Dose: Not Given Piperacillin Sod/Tazobactam (Sod 3.375 gm/ Sodium Chloride) 50 mls @ 100 mls/ hr IV ONETIME ONE Stop: 05/29/16 20:08 Last Admin: 05/29/16 20:05 Dose: 100 mls/hr Sodium Chloride (Normal Saline) 1,000 mls @ 500 mls/hr IV STAT [facility] Last Admin: 05/29/16 20:06 Dose: 500 mls/hr Vancomycin HCl 1.5 gm/ Sodium (Chloride) 500 mls @ 333 mls/hr IV Q12H [facility] Last Admin: 05/30/16 23:14 Dose: 333 mls/hr Non-Formulary Medication (Levothyroxine Sodium) 200 mcg PO ASDIRECTED [facility] Non-Formulary Medication (Potassium Gluconate [Potassium]) 99 mg PO DAILY [facility] Last Admin: 05/30/16 11:05 Dose: Not Given Non-Formulary Medication (Fentanyl [Fentanyl]) 12 mcg TD ASDIRECTED PRN PRN Reason: Pain - Exam Lungs: Rales, Rhonchi, Other (Labored breathing. Solar screening.) Abdomen: no tenderness Physical Findings Comments:: She is alert and cooperative but appears fatigued - Problem List & Annotations (1) Pneumonia SNOMED Code(s): 694202572 Code(s): J18.9 - PNEUMONIA, UNSPECIFIED ORGANISM Status: Acute Current Visit: Yes Qualifiers: Pneumonia type: due to unspecified organism Laterality: bilateral Lung location: unspecified part of lung Qualified Code(s): J18.9 - Pneumonia, unspecified organism (2) Stasis ulcer Status: Acute Current Visit: Yes - Problem List Review Problem List Initiated/Reviewed/Updated: Yes - My Orders Last 24 Hours: My Active Orders 05/30/16 14:09 Consult to Speech Language Pathology [NANNY BABYSITTER Evaluation and Treatment] [CONS] Routine 05/31/16 06:00 fentaNYL [Duragesic] 12 mcg TRDERM Q72H 05/31/16 11:30 Vancomycin 1,250 mg Sodium Chloride 0.9% [Normal Saline] 250 ml IV Q12H 05/31/16 14:36 Magnesium Sulfate/Water [Magnesium Sulfate 4 GM in Water 100 ML] 4 gm Premix Bag 1 bag IV ONETIME 05/31/16 15:02 CXR [Chest 1V Frontal] [CR] Routine 06/01/16 05:11 BASIC METABOLIC PANEL,BMP [CHEM] AM CBC WITH AUTO DIFF [HEME] AM INR,PT,PROTHROMBIN TIME [COAG] AM MG [MAGNESIUM] [CHEM] AM 06/01/16 08:00 Echo 2D wo Cont [US] Urgent 06/02/16 05:11 BASIC METABOLIC PANEL,BMP [CHEM] AM CBC WITH AUTO DIFF [HEME] AM MG [MAGNESIUM] [CHEM] AM 06/02/16 10:30 VANCOMYCIN TROUGH [CHEM] Routine 06/05/16 07:30 Levothyroxine [Synthroid] 300 mcg PO Fr@0730 - Plan Plan:: admit see orders I confirmed code level III status with son and daughter in law. Edvin Medrano MD 05/30/2016 I am concerned that she may have pulmonary edema echo ordered lasix 60 mg IV now monitor lab aspiration precautions steroids Annalisa Medrano MD 05/31/2016: I am concerned that she may be aspirating. She seems to be too weak to have a strong cough. I spoke with Claudy larkin with respiratory therapy he will consult regarding appropriate pulmonary toilet. Chest x-ray in a.m. I spoke with family. Prognosis is very guarded. Edvin Medrano MD
[2016-05-31] MEDS: Levofloxacin/Dextrose 5%-Water 750 MG in Premix Bag 1 BAG IV SCH (22:47)
[2016-06-01] MEDS: Albuterol/Ipratropium 3.0-0.5 MG/3 ML Neb Soln NEB SCH ×6 (03:09→21:57)
[2016-06-01] MEDS: Piperacillin/Tazobactam 3.375 GM in Sodium Chloride 0.9% 50 ML IV SCH ×5 (03:09→23:34)
[2016-06-01] MEDS: methylPREDNISolone Sodium Succinate 125 MG/2 ML SDV IVPUSH SCH ×4 (04:46→21:28)
[2016-06-01] MEDS: Levothyroxine 100 MCG Tab PO SCH (06:49)
[2016-06-01 07:55] LABS: CHLORIDE,CL 104 mmol/L (98-110); SODIUM,NA 149 mmol/L (136-146)
[2016-06-01] MEDS: Beta-Carotene (Vitamin A) w/Vitamin C & E plus Minerals Tab PO SCH (10:20)
[2016-06-01] MEDS: Docusate Sodium 100 MG Cap PO SCH ×2 (10:20→21:27)
[2016-06-01] MEDS: Sertraline 100 MG Tab PO SCH (10:20)
[2016-06-01] MEDS: Gabapentin 300 MG Cap PO SCH ×2 (10:21→21:27)
[2016-06-01] MEDS: Spironolactone 25 MG Tab PO SCH (10:38)
[2016-06-01] MEDS: Losartan 50 MG Tab PO SCH (10:38)
[2016-06-01] MEDS: Potassium Gluconate [Potassium] 99 MG PO SCH ×2 (10:39→10:42)
[2016-06-01] MEDS: Furosemide 40 MG Tab PO SCH (10:54)
--- NOTE | 2016-06-01 10:58 | PCM.PN ---
- General Info Date of Service: 06/01/16 Subjective Update: Her daughter states that she ate a little better with the pured diet and thickened liquids. - Patient Data Vitals - most recent: Last Vital Signs Temp 97.5 F 06/01/16 08:00 Pulse 113 H 06/01/16 08:00 Resp 22 H 06/01/16 08:16 BP 141/73 H 06/01/16 10:38 Pulse Ox 90 L 06/01/16 08:16 Weight - most recent: 92.079 kg I&O - last 24 hours: Intake & Output 05/31/16 06/01/16 06/01/16 22:59 06:59 14:59 Intake Total 300 500 Balance 300 500 Lab Results last 24 hrs: Laboratory Results - last 24 hr 05/31/16 06/01/16 06/01/16 Range/Units 10:49 07:20 07:20 WBC 5.40 (4.0-11.0) K/uL RBC 3.84 L (4.30-5.90) M/uL Hgb 11.4 L (12.0-16.0) g/dL Hct 36.8 (36.0-46.0) % MCV 95.8 (80.0-98.0) fL MCH 29.7 (27.0-32.0) pg MCHC 31.0 (31.0-37.0) g/dL RDW Std Deviation 57.2 (28.0-62.0) fl RDW Coeff of Ron 17 H (11.0-15.0) % Plt Count 120 L (150-400) K/uL MPV 10.60 (7.40-12.00) fL Neut % (Auto) 85.5 H (48.0-80.0) % Lymph % (Auto) 10.6 L (16.0-40.0) % [place] % (Auto) 3.9 (0.0-15.0) % Eos % (Auto) 0.0 (0.0-7.0) % Baso % (Auto) 0.0 (0.0-1.5) % Neut # (Auto) 4.6 (1.4-5.7) K/uL Lymph # (Auto) 0.6 (0.6-2.4) K/uL [place] # (Auto) 0.2 (0.0-0.8) K/uL Eos # (Auto) 0.0 (0.0-0.7) K/uL Baso # (Auto) 0.0 (0.0-0.1) K/uL Nucleated RBC % 0.0 /100WBC Nucleated RBCs # 0 K/uL INR 3.04 H (0.86-1.11) Sodium (136-146) mmol/L Potassium (3.5-5.1) mmol/L Chloride (98-110) mmol/L Carbon Dioxide (21-31) mmol/L BUN (6.0-23.0) mg/dL Creatinine (0.6-1.5) mg/dL Est Cr Clr Drug Dosing mL/min Estimated GFR (MDRD) ml/min Glucose (60-110) mg/dL Calcium (8.8-10.8) mg/dL Magnesium (1.5-2.3) mEq/L Vancomycin Trough 26.1 H (5-15) ug/mL 06/01/16 Range/Units 07:20 WBC (4.0-11.0) K/uL RBC (4.30-5.90) M/uL Hgb (12.0-16.0) g/dL Hct (36.0-46.0) % MCV (80.0-98.0) fL MCH (27.0-32.0) pg MCHC (31.0-37.0) g/dL RDW Std Deviation (28.0-62.0) fl RDW Coeff of Ron (11.0-15.0) % Plt Count (150-400) K/uL MPV (7.40-12.00) fL Neut % (Auto) (48.0-80.0) % Lymph % (Auto) (16.0-40.0) % [place] % (Auto) (0.0-15.0) % Eos % (Auto) (0.0-7.0) % Baso % (Auto) (0.0-1.5) % Neut # (Auto) (1.4-5.7) K/uL Lymph # (Auto) (0.6-2.4) K/uL [place] # (Auto) (0.0-0.8) K/uL Eos # (Auto) (0.0-0.7) K/uL Baso # (Auto) (0.0-0.1) K/uL Nucleated RBC % /100WBC Nucleated RBCs # K/uL INR (0.86-1.11) Sodium 149 H (136-146) mmol/L Potassium 3.3 L (3.5-5.1) mmol/L Chloride 104 (98-110) mmol/L Carbon Dioxide 34 H (21-31) mmol/L BUN 28 H (6.0-23.0) mg/dL Creatinine 0.8 (0.6-1.5) mg/dL Est Cr Clr Drug Dosing 41.74 mL/min Estimated GFR (MDRD) > 60.0 ml/min Glucose 140 H (60-110) mg/dL Calcium 7.9 L (8.8-10.8) mg/dL Magnesium 2.2 (1.5-2.3) mEq/L Vancomycin Trough (5-15) ug/mL Reece Results last 24 hrs: Microbiology 05/30/16 01:00 Gram Stain - Final Sputum - Expectorated Sputum Culture - Final Normal Respiratory [facility] YEAST Med Orders - Current: Current Medications Acetaminophen (Tylenol) 650 mg PO Q4H PRN PRN Reason: Pain (Mild 1-3)/fever Last Admin: 05/30/16 23:27 Dose: 650 mg Hydrocodone Bitart/Acetaminophen ([place]ry 325-10 Mg) 1 tab PO Q6H PRN PRN Reason: pain Albuterol/Ipratropium (Duoneb 3.0-0.5 Mg/3 Ml) 3 ml NEB Q4H [facility] Last Admin: 06/01/16 07:30 Dose: 3 ml Bisacodyl (Dulcolax) 5 mg PO DAILY PRN PRN Reason: Constipation Docusate Sodium (Colace) 100 mg PO BID PRN PRN Reason: Constipation Docusate Sodium (Colace) 100 mg PO BID [facility] Last Admin: 06/01/16 10:20 Dose: 100 mg Fentanyl (Duragesic) 12 mcg TRDERM Q72H [facility] Last Admin: 05/31/16 06:03 Dose: 12 mcg Furosemide (Lasix) 20 mg PO DAILY [facility] Gabapentin (Neurontin) 300 mg PO DAILY [facility] Last Admin: 06/01/16 10:21 Dose: 300 mg Piperacillin Sod/Tazobactam (Sod 3.375 gm/ Sodium Chloride) 50 mls @ 100 mls/ hr IV Q6H [facility] Last Admin: 06/01/16 10:14 Dose: 100 mls/hr Vancomycin HCl 1,250 mg/ (Sodium Chloride) 250 mls @ 166.512 mls/hr IV Q12H [facility] Last Admin: 06/01/16 00:08 Dose: 166.512 mls/hr Levofloxacin/Dextrose 750 mg/ (Premix) 150 mls @ 100 mls/hr IV Q48H [facility] Levothyroxine Sodium (Synthroid) 300 mcg PO MoFr@0730 [facility] Levothyroxine Sodium (Synthroid) 200 mcg PO SuTuWeThSa@0730 [facility] Losartan Potassium (Cozaar) 100 mg PO DAILY [facility] Last Admin: 06/01/16 10:38 Dose: 100 mg Methylprednisolone Sodium Succinate (Solu-Medrol) 125 mg IVPUSH Q8H [facility] Last Admin: 06/01/16 04:46 Dose: 125 mg Multivitamins/Minerals (Prosight) 1 tab PO DAILY [facility] Last Admin: 06/01/16 10:20 Dose: 1 tab Ondansetron HCl (Zofran Odt) 4 mg PO Q4H PRN PRN Reason: nausea, able to take PO Last Admin: 05/30/16 07:06 Dose: 4 mg Potassium Gluconate ([Potassium] 99 Mg) 99 each PO DAILY [facility] Last Admin: 06/01/16 10:42 Dose: 99 each Sertraline HCl (Zoloft) 200 mg PO DAILY [facility] Spironolactone (Aldactone) 25 mg PO DAILY [facility] Last Admin: 06/01/16 10:38 Dose: 25 mg Temazepam (Restoril) 15 mg PO BEDTIME PRN PRN Reason: Sleep Vancomycin HCl (Pharmacy To Dose - Vancomycin) 1 dose .XX ASDIRECTED [facility] Warfarin Sodium (Coumadin Ask) 1 each PO DAILY@1400 [facility] Discontinued Medications Hydrocodone Bitart/Acetaminophen ([place]ry 325-10 Mg) 1 tab PO ONETIME ONE Stop: 05/29/16 19:06 Last Admin: 05/29/16 20:27 Dose: Not Given Albuterol/Ipratropium (Duoneb 3.0-0.5 Mg/3 Ml) 3 ml NEB ONETIME ONE Stop: 05/29/16 19:39 Last Admin: 05/29/16 19:58 Dose: 3 ml Furosemide (Lasix) 40 mg PO DAILY [facility] Last Admin: 06/01/16 10:54 Dose: Not Given Furosemide (Lasix) 60 mg IVPUSH NOW ONE Stop: 05/30/16 13:09 Last Admin: 05/30/16 13:33 Dose: 60 mg Piperacillin Sod/Tazobactam (Sod 3.375 gm/ Sodium Chloride) 50 mls @ 100 mls/ hr IV ONETIME ONE Stop: 05/29/16 20:04 Last Admin: 05/29/16 21:10 Dose: Not Given Piperacillin Sod/Tazobactam (Sod 3.375 gm/ Sodium Chloride) 50 mls @ 100 mls/ hr IV ONETIME ONE Stop: 05/29/16 20:08 Last Admin: 05/29/16 20:05 Dose: 100 mls/hr Sodium Chloride (Normal Saline) 1,000 mls @ 500 mls/hr IV STAT [facility] Last Admin: 05/29/16 20:06 Dose: 500 mls/hr Levofloxacin/Dextrose 750 mg/ (Premix) 150 mls @ 100 mls/hr IV Q24H [facility] Last Admin: 05/31/16 22:47 Dose: 100 mls/hr Vancomycin HCl 1.5 gm/ Sodium (Chloride) 500 mls @ 333 mls/hr IV Q12H [facility] Last Admin: 05/30/16 23:14 Dose: 333 mls/hr Magnesium Sulfate 4 gm/ Premix 100 mls @ 25 mls/hr IV ONETIME ONE Stop: 05/31/16 18:35 Last Admin: 05/31/16 14:53 Dose: 25 mls/hr Levothyroxine Sodium (Synthroid) 200 mcg PO SuMoTuWeThSa@0730 [facility] Last Admin: 06/01/16 06:49 Dose: 200 mcg Non-Formulary Medication (Levothyroxine Sodium) 200 mcg PO ASDIRECTED [facility] Non-Formulary Medication (Potassium Gluconate [Potassium]) 99 mg PO DAILY [facility] Last Admin: 05/30/16 11:05 Dose: Not Given Non-Formulary Medication (Fentanyl [Fentanyl]) 12 mcg TD ASDIRECTED PRN PRN Reason: Pain Sertraline HCl (Zoloft) 100 mg PO BID [facility] Last Admin: 06/01/16 10:20 Dose: 100 mg Warfarin Sodium (Coumadin) 2.5 mg PO DAILY@1400 [facility] Last Admin: 05/31/16 13:10 Dose: 2.5 mg Warfarin Sodium (Coumadin) 2 mg PO DAILY@1400 [facility] - Exam General: lethargic, other (She is lethargic but awakens to voice.) Lungs: Other (Lung exam reveals Soder's breathing heard without the stethoscope prolongation of expiration increased work of breathing diffuse coarse rales. Brayan or less prominent than yesterday but still readily audible abdomen is nontender) - Problem List & Annotations (1) Pneumonia SNOMED Code(s): 812968310 Code(s): J18.9 - PNEUMONIA, UNSPECIFIED ORGANISM Status: Acute Current Visit: Yes Qualifiers: Pneumonia type: due to unspecified organism Laterality: bilateral Lung location: unspecified part of lung Qualified Code(s): J18.9 - Pneumonia, unspecified organism (2) Stasis ulcer Status: Acute Current Visit: Yes - Problem List Review Problem List Initiated/Reviewed/Updated: Yes - My Orders Last 24 Hours: My Active Orders 05/31/16 11:30 Vancomycin 1,250 mg Sodium Chloride 0.9% [Normal Saline] 250 ml IV Q12H 05/31/16 15:02 CXR [Chest 1V Frontal] [CR] Routine 06/01/16 08:00 Echo Comp wo Cont [US] Urgent 06/01/16 11:00 Furosemide [Lasix] 20 mg PO DAILY 06/01/16 14:00 Warfarin Dosing [Coumadin Ask] 1 each PO DAILY@1400 06/02/16 05:11 BASIC METABOLIC PANEL,BMP [CHEM] AM CBC WITH AUTO DIFF [HEME] AM MG [MAGNESIUM] [CHEM] AM 06/02/16 07:30 Levothyroxine [Synthroid] 200 mcg PO SuTuWeThSa@30 06/02/16 09:00 Sertraline [Zoloft] 200 mg PO DAILY 06/02/16 10:30 VANCOMYCIN TROUGH [CHEM] Routine 06/02/16 21:00 Levofloxacin/Dextrose 5%-Water [Levaquin in D5W 750 MG/150 ML] 750 mg Premix Bag 1 bag IV Q48H 06/05/16 07:30 Levothyroxine [Synthroid] 300 mcg PO MoFr@729 - Plan Plan:: admit see orders I confirmed code level III status with son and daughter in law. Edvin Medrano MD 05/30/2016 I am concerned that she may have pulmonary edema echo ordered lasix 60 mg IV now monitor lab aspiration precautions steroids Annalisa Medrano MD 05/31/2016: I am concerned that she may be aspirating. She seems to be too weak to have a strong cough. I spoke with Claudy larkin with respiratory therapy he will consult regarding appropriate pulmonary toilet. Chest x-ray in a.m. I spoke with family. Prognosis is very guarded. Edvin Medrano MD 06/01/2016: I reviewed her chest x-ray from this morning. Improvement if any appears minimal. I discussed with her daughter the guarded prognosis. Modified barium swallow is planned. Speech pathology consult planned. We discussed the potential of going to comfort measures if she does not show improvement in the next 2 days. Her daughter states that she has expressed the sentiment quotient I am ready to "
--- NOTE | 2016-06-01 10:59 | PCM.SN ---
- Free Text/Narrative Note: K supplementation started. follow lab. Edvin Medrano MD
[2016-06-01] MEDS: Furosemide 20 MG Tab PO SCH (11:04)
[2016-06-01] MEDS ORDERED: Warfarin 2 MG Tab PO SCH (14:00)
--- NOTE | 2016-06-01 15:14 | CR ---
EXAM DATE: 05/29/16 PATIENT'S AGE: 85 Patient: EMILY MADRID Facility: [place], [place] Site . Site : 1930 Study: XRay Chest [id number]/24/2017 6:39:19 PM Ordering Physician: Doctor Rodriguez Final Report: Indication: Shortness of breath, hypoxia, history of lung cancer Technique: Chest two views. Comparison: March 18, 2015 Findings: Stable cardiac size. There are new perihilar and right basilar patchy opacities compared to the prior exam. No effusion or pneumothorax. Right-sided cardiac device again noted. Increased kyphosis of thoracic spine with thoracic spine compression fractures. Impression: New perihilar and right basilar opacities may represent atelectasis or infection. Dictated by Rosemary Craven MD @ May 29 2016 6:51PM (Electronic Signature) Report Signed by Proxy and Original Signed Document filed in the Medical Record. RUTH
--- NOTE | 2016-06-01 15:26 | CR ---
EXAMINATION: Oropharyngeal video swallow study. HISTORY: No aspiration pneumonia COMPARISON: None TECHNIQUE: Bilateral images obtained, speech pathologist present, various barium consistencies provi ded. FINDINGS: There is adequate bolus formation and transfer. Epiglottic inversion and tracheal elevatio n appear normal. Several episodes of aspiration were noted within liquids with a delayed cough. Thi s improved with the chin tuck technique. [place]land consistencies were also better tolerated. IMPRESSION: 1. Aspiration noted with thin consistencies. Please see speech pathology report for additional detai ls.
--- NOTE | 2016-06-01 18:50 | CR ---
EXAM DATE: 05/29/16 PATIENT'S AGE: 85 Patient: EMILY MADRID Facility: [place], [place] Site . 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 Stable cardiomegaly. Mediastinum is within normal limits. Lungs and pleural space: Improved right perihilar pneumonia. Right lower lobe infiltrate or atelectasis is unchanged. Remainder of the lungs are clear. Bones and soft tissues: No acute findings. Dictated by Shaan Meneses MD @ 05/31/2016 3:56:18 PM Dictated by: Shaan Meneses MD @ 05/31/2016 15:56:24 (Electronic Signature) Report Signed by Proxy and Original Signed Document filed in the Medical Record. MTDD
[2016-06-02] MEDS: Albuterol/Ipratropium 3.0-0.5 MG/3 ML Neb Soln NEB SCH ×6 (01:54→22:33)
[2016-06-02] MEDS: Piperacillin/Tazobactam 3.375 GM in Sodium Chloride 0.9% 50 ML IV SCH ×2 (04:32→11:30)
[2016-06-02] MEDS: methylPREDNISolone Sodium Succinate 125 MG/2 ML SDV IVPUSH SCH (05:25)
[2016-06-02 05:34] LABS: CHLORIDE,CL 106 mmol/L (98-110); SODIUM,NA 150 mmol/L (136-146)
[2016-06-02] MEDS ORDERED: Levothyroxine 100 MCG Tab PO SCH (07:30)
[2016-06-02] MEDS ORDERED: Sertraline 100 MG Tab PO SCH (09:00)
[2016-06-02] MEDS: Losartan 50 MG Tab PO SCH (09:14)
[2016-06-02] MEDS: Spironolactone 25 MG Tab PO SCH (09:14)
[2016-06-02] MEDS: Beta-Carotene (Vitamin A) w/Vitamin C & E plus Minerals Tab PO SCH (09:18)
[2016-06-02] MEDS: Gabapentin 300 MG Cap PO SCH (09:18)
[2016-06-02] MEDS: Furosemide 20 MG Tab PO SCH (09:18)
[2016-06-02] MEDS: Potassium Gluconate [Potassium] 99 MG PO SCH (09:19)
[2016-06-02] MEDS: Docusate Sodium 100 MG Cap PO SCH ×3 (09:19→20:54)
[2016-06-02] MEDS ORDERED: Morphine Oral Concentrate 20 MG/ML 30 ML Bottle PO PRN (12:44)
--- NOTE | 2016-06-02 12:51 | PCM.PN ---
- General Info Date of Service: 06/02/16 Subjective Update: She feels subjectively quite weak. She is a little bit this morning. - Patient Data Vitals - most recent: Last Vital Signs Temp 99 F 06/02/16 11:44 Pulse 92 06/02/16 07:48 Resp 20 06/02/16 11:44 BP 139/53 L 06/02/16 11:44 Pulse Ox 95 06/02/16 11:44 say a few simple words that are difficult to understand because of dysarthria. She appears very weak with difficulty even in lifting her arm off the bed. Lung exam reveals decreased tidal volume course rales throughout all lung gutierrez. 1-2 + pitting edema of the lower extremities. Weight - most recent: 62.7 kg I&O - last 24 hours: Intake & Output 06/01/16 06/02/16 06/02/16 22:59 06:59 14:59 Intake Total 260 350 50 Output Total 194 Balance 66 350 50 Lab Results last 24 hrs: Laboratory Results - last 24 hr 06/02/16 06/02/16 06/02/16 Range/Units 04:51 04:51 12:01 WBC 6.40 (4.0-11.0) K/uL RBC 3.82 L (4.30-5.90) M/uL Hgb 11.1 L (12.0-16.0) g/dL Hct 37.0 (36.0-46.0) % MCV 96.9 (80.0-98.0) fL MCH 29.1 (27.0-32.0) pg MCHC 30.0 L (31.0-37.0) g/dL RDW Std Deviation 58.7 (28.0-62.0) fl RDW Coeff of Ron 17 H (11.0-15.0) % Plt Count 109 L (150-400) K/uL MPV 10.30 (7.40-12.00) fL Neut % (Auto) 89.1 H (48.0-80.0) % Lymph % (Auto) 7.8 L (16.0-40.0) % [place] % (Auto) 3.1 (0.0-15.0) % Eos % (Auto) 0.0 (0.0-7.0) % Baso % (Auto) 0.0 (0.0-1.5) % Neut # (Auto) 5.7 (1.4-5.7) K/uL Lymph # (Auto) 0.5 L (0.6-2.4) K/uL [place] # (Auto) 0.2 (0.0-0.8) K/uL Eos # (Auto) 0.0 (0.0-0.7) K/uL Baso # (Auto) 0.0 (0.0-0.1) K/uL Nucleated RBC % 0.0 /100WBC Nucleated RBCs # 0 K/uL INR 2.85 H (0.86-1.11) Sodium 150 H (136-146) mmol/L Potassium 3.2 L (3.5-5.1) mmol/L Chloride 106 (98-110) mmol/L Carbon Dioxide 33 H (21-31) mmol/L BUN 29 H (6.0-23.0) mg/dL Creatinine 0.8 (0.6-1.5) mg/dL Est Cr Clr Drug Dosing 41.74 mL/min Estimated GFR (MDRD) > 60.0 ml/min Glucose 145 H (60-110) mg/dL Calcium 7.6 L (8.8-10.8) mg/dL Magnesium 1.9 (1.5-2.3) mEq/L Med Orders - Current: Current Medications Acetaminophen (Tylenol) 650 mg PO Q4H PRN PRN Reason: Pain (Mild 1-3)/fever Last Admin: 05/30/16 23:27 Dose: 650 mg Albuterol/Ipratropium (Duoneb 3.0-0.5 Mg/3 Ml) 3 ml NEB Q4H [facility] Last Admin: 06/02/16 10:37 Dose: 3 ml Bisacodyl (Dulcolax) 5 mg PO DAILY PRN PRN Reason: Constipation Last Admin: 06/01/16 21:27 Dose: 5 mg Docusate Sodium (Colace) 100 mg PO BID [facility] Last Admin: 06/02/16 09:19 Dose: 100 mg Fentanyl (Duragesic) 12 mcg TRDERM Q72H [facility] Last Admin: 05/31/16 06:03 Dose: 12 mcg Morphine Sulfate (Morphine 20 Mg/Ml Soln) 10 mg PO Q2H PRN PRN Reason: Pain Ondansetron HCl (Zofran Odt) 4 mg PO Q4H PRN PRN Reason: nausea, able to take PO Last Admin: 05/30/16 07:06 Dose: 4 mg Temazepam (Restoril) 15 mg PO BEDTIME PRN PRN Reason: Sleep Discontinued Medications Hydrocodone Bitart/Acetaminophen ([place] 325-10 Mg) 1 tab PO ONETIME ONE Stop: 05/29/16 19:06 Last Admin: 05/29/16 20:27 Dose: Not Given Hydrocodone Bitart/Acetaminophen ([place] 325-10 Mg) 1 tab PO Q6H PRN PRN Reason: pain Albuterol/Ipratropium (Duoneb 3.0-0.5 Mg/3 Ml) 3 ml NEB ONETIME ONE Stop: 05/29/16 19:39 Last Admin: 05/29/16 19:58 Dose: 3 ml Docusate Sodium (Colace) 100 mg PO BID PRN PRN Reason: Constipation Furosemide (Lasix) 40 mg PO DAILY [facility] Last Admin: 06/01/16 10:54 Dose: Not Given Furosemide (Lasix) 60 mg IVPUSH NOW ONE Stop: 05/30/16 13:09 Last Admin: 05/30/16 13:33 Dose: 60 mg Furosemide (Lasix) 20 mg PO DAILY [facility] Last Admin: 06/02/16 09:18 Dose: 20 mg Gabapentin (Neurontin) 300 mg PO DAILY [facility] Last Admin: 06/01/16 10:21 Dose: 300 mg Gabapentin (Neurontin) 300 mg PO BID [facility] Last Admin: 06/02/16 09:18 Dose: 300 mg Piperacillin Sod/Tazobactam (Sod 3.375 gm/ Sodium Chloride) 50 mls @ 100 mls/ hr IV ONETIME ONE Stop: 05/29/16 20:04 Last Admin: 05/29/16 21:10 Dose: Not Given Piperacillin Sod/Tazobactam (Sod 3.375 gm/ Sodium Chloride) 50 mls @ 100 mls/ hr IV ONETIME ONE Stop: 05/29/16 20:08 Last Admin: 05/29/16 20:05 Dose: 100 mls/hr Sodium Chloride (Normal Saline) 1,000 mls @ 500 mls/hr IV STAT [facility] Last Admin: 05/29/16 20:06 Dose: 500 mls/hr Levofloxacin/Dextrose 750 mg/ (Premix) 150 mls @ 100 mls/hr IV Q24H [facility] Last Admin: 05/31/16 22:47 Dose: 100 mls/hr Piperacillin Sod/Tazobactam (Sod 3.375 gm/ Sodium Chloride) 50 mls @ 100 mls/ hr IV Q6H [facility] Last Admin: 06/01/16 18:20 Dose: Not Given Vancomycin HCl 1.5 gm/ Sodium (Chloride) 500 mls @ 333 mls/hr IV Q12H [facility] Last Admin: 05/30/16 23:14 Dose: 333 mls/hr Vancomycin HCl 1,250 mg/ (Sodium Chloride) 250 mls @ 166.512 mls/hr IV Q12H [facility] Last Admin: 06/02/16 00:22 Dose: 166.512 mls/hr Magnesium Sulfate 4 gm/ Premix 100 mls @ 25 mls/hr IV ONETIME ONE Stop: 05/31/16 18:35 Last Admin: 05/31/16 14:53 Dose: 25 mls/hr Levofloxacin/Dextrose 750 mg/ (Premix) 150 mls @ 100 mls/hr IV Q48H [facility] Piperacillin Sod/Tazobactam (Sod 3.375 gm/ Sodium Chloride) 50 mls @ 100 mls/ hr IV Q6H [facility] Last Admin: 06/02/16 11:30 Dose: 100 mls/hr Levothyroxine Sodium (Synthroid) 200 mcg PO SuMoTuWeThSa@0730 [facility] Last Admin: 06/01/16 06:49 Dose: 200 mcg Levothyroxine Sodium (Synthroid) 300 mcg PO MoFr@0730 [facility] Levothyroxine Sodium (Synthroid) 200 mcg PO SuTuWeThSa@0730 [facility] Last Admin: 06/02/16 06:54 Dose: 200 mcg Losartan Potassium (Cozaar) 100 mg PO DAILY [facility] Last Admin: 06/02/16 09:14 Dose: 100 mg Methylprednisolone Sodium Succinate (Solu-Medrol) 125 mg IVPUSH Q8H [facility] Last Admin: 06/01/16 18:20 Dose: Not Given Methylprednisolone Sodium Succinate (Solu-Medrol) 125 mg IVPUSH Q8HR [facility] Last Admin: 06/02/16 05:25 Dose: 125 mg Multivitamins/Minerals (Prosight) 1 tab PO DAILY [facility] Last Admin: 06/02/16 09:18 Dose: 1 tab Non-Formulary Medication (Levothyroxine Sodium) 200 mcg PO ASDIRECTED [facility] Non-Formulary Medication (Potassium Gluconate [Potassium]) 99 mg PO DAILY [facility] Last Admin: 05/30/16 11:05 Dose: Not Given Non-Formulary Medication (Fentanyl [Fentanyl]) 12 mcg TD ASDIRECTED PRN PRN Reason: Pain Potassium Gluconate ([Potassium] 99 Mg) 99 each PO DAILY [facility] Last Admin: 06/02/16 09:19 Dose: 99 each Sertraline HCl (Zoloft) 100 mg PO BID [facility] Last Admin: 06/01/16 10:20 Dose: 100 mg Sertraline HCl (Zoloft) 200 mg PO DAILY [facility] Last Admin: 06/02/16 09:19 Dose: 200 mg Spironolactone (Aldactone) 25 mg PO DAILY [facility] Last Admin: 06/02/16 09:14 Dose: 25 mg Vancomycin HCl (Pharmacy To Dose - Vancomycin) 1 dose .XX ASDIRECTED [facility] Warfarin Sodium (Coumadin) 2.5 mg PO DAILY@1400 [facility] Last Admin: 05/31/16 13:10 Dose: 2.5 mg Warfarin Sodium (Coumadin) 2 mg PO DAILY@1400 [facility] Warfarin Sodium (Coumadin Ask) 1 each PO DAILY@1400 [facility] Last Admin: 06/01/16 15:50 Dose: Not Given Warfarin Sodium (Coumadin) 1 mg PO 06/01/16@1400 [facility] Stop: 06/01/16 14:01 Last Admin: 06/01/16 15:50 Dose: Not Given - Problem List & Annotations (1) Pneumonia SNOMED Code(s): 646869614 Code(s): J18.9 - PNEUMONIA, UNSPECIFIED ORGANISM Status: Acute Current Visit: Yes Qualifiers: Pneumonia type: due to unspecified organism Laterality: bilateral Lung location: unspecified part of lung Qualified Code(s): J18.9 - Pneumonia, unspecified organism (2) Stasis ulcer Status: Acute Current Visit: Yes - Problem List Review Problem List Initiated/Reviewed/Updated: Yes - My Orders Last 24 Hours: My Active Orders 06/02/16 12:01 VANCOMYCIN TROUGH [CHEM] Routine 06/02/16 12:44 Morphine [Morphine 20 MG/ML Soln] 10 mg PO Q2H PRN 06/02/16 12:45 Finley Catheter Insertion [Insert Urinary Catheter] [OM.PC] Q24H Urinary Catheter Assessment [RC] ASDIRECTED - Plan Plan:: admit see orders I confirmed code level III status with son and daughter in law. Edvin Medrano MD 05/30/2016 I am concerned that she may have pulmonary edema echo ordered lasix 60 mg IV now monitor lab aspiration precautions steroids Annalisa Medrano MD 05/31/2016: I am concerned that she may be aspirating. She seems to be too weak to have a strong cough. I spoke with Claudy larkin with respiratory therapy he will consult regarding appropriate pulmonary toilet. Chest x-ray in a.m. I spoke with family. Prognosis is very guarded. Edvin Medrano MD 06/01/2016: I reviewed her chest x-ray from this morning. Improvement if any appears minimal. I discussed with her daughter the guarded prognosis. Modified barium swallow is planned. Speech pathology consult planned. We discussed the potential of going to comfort measures if she does not show improvement in the next 2 days. Her daughter states that she has expressed the sentiment quotient I am ready to " Edvin Medarno MD 06/02/2016 I discussed with the patient going to comfort care. I discussed this also with family members. They're all in agreement. She states that she wants to pass quickly. I advised that her prognosis is very poor. I advised her recovery is not impossible but unlikely. We decided to go to comfort measures. See orders. We discussed Finley catheter for comfort. The patient would like a Finley catheter. Discussed also the possibility of going home to . Will discuss again tomorrow and if and make a decision based somewhat on her clinical status that time.
[2016-06-02] MEDS ORDERED: Levofloxacin/Dextrose 5%-Water 750 MG in Premix Bag 1 BAG IV SCH (21:00)
[2016-06-03] MEDS: Albuterol/Ipratropium 3.0-0.5 MG/3 ML Neb Soln NEB SCH ×3 (02:23→09:30)
[2016-06-03] MEDS: fentaNYL 12 MCG/HR Transdermal Patch TRDERM SCH (05:42)
[2016-06-03] MEDS: Docusate Sodium 100 MG Cap PO SCH ×2 (10:22→23:56)
--- NOTE | 2016-06-03 12:27 | PCM.PN ---
- General Info Date of Service: 06/03/16 - Review of Systems Systems Review Comment:: She appears very weak. She is able to say some words. She's been very little. She is drinking some fluids. She has several family members in attendance - Patient Data Vitals - most recent: Last Vital Signs Temp 98.7 F 06/02/16 20:00 Pulse 81 06/02/16 20:00 Resp 16 06/02/16 20:00 BP 108/67 06/02/16 20:00 Pulse Ox 93 L 06/02/16 20:00 Weight - most recent: 62.7 kg I&O - last 24 hours: Intake & Output 06/02/16 06/03/16 06/03/16 22:59 06:59 14:59 Intake Total 310 100 Output Total 668 250 Balance -358 -150 Med Orders - Current: Current Medications Acetaminophen (Tylenol) 650 mg PO Q4H PRN PRN Reason: Pain (Mild 1-3)/fever Last Admin: 05/30/16 23:27 Dose: 650 mg Albuterol/Ipratropium (Duoneb 3.0-0.5 Mg/3 Ml) 3 ml NEB Q4H [facility] [place] Last Admin: 06/03/16 09:30 Dose: 3 ml Bisacodyl (Dulcolax) 5 mg PO DAILY PRN PRN Reason: Constipation Last Admin: 06/01/16 21:27 Dose: 5 mg Docusate Sodium (Colace) 100 mg PO BID [facility] [place] Last Admin: 06/03/16 10:22 Dose: Not Given Fentanyl (Duragesic) 12 mcg TRDERM Q72H [facility] [place] Last Admin: 06/03/16 05:42 Dose: 12 mcg Morphine Sulfate (Morphine 20 Mg/Ml Soln) 10 mg PO Q2H PRN PRN Reason: Pain Ondansetron HCl (Zofran Odt) 4 mg PO Q4H PRN PRN Reason: nausea, able to take PO Last Admin: 05/30/16 07:06 Dose: 4 mg Temazepam (Restoril) 15 mg PO BEDTIME PRN PRN Reason: Sleep Discontinued Medications Hydrocodone Bitart/Acetaminophen ([place] 325-10 Mg) 1 tab PO ONETIME ONE Stop: 05/29/16 19:06 Last Admin: 05/29/16 20:27 Dose: Not Given Hydrocodone Bitart/Acetaminophen ([place] 325-10 Mg) 1 tab PO Q6H PRN PRN Reason: pain Albuterol/Ipratropium (Duoneb 3.0-0.5 Mg/3 Ml) 3 ml NEB ONETIME ONE Stop: 05/29/16 19:39 Last Admin: 05/29/16 19:58 Dose: 3 ml Docusate Sodium (Colace) 100 mg PO BID PRN PRN Reason: Constipation Furosemide (Lasix) 40 mg PO DAILY [facility] [place] Last Admin: 06/01/16 10:54 Dose: Not Given Furosemide (Lasix) 60 mg IVPUSH NOW ONE Stop: 05/30/16 13:09 Last Admin: 05/30/16 13:33 Dose: 60 mg Furosemide (Lasix) 20 mg PO DAILY [facility] [place] Last Admin: 06/02/16 09:18 Dose: 20 mg Gabapentin (Neurontin) 300 mg PO DAILY [facility] [place] Last Admin: 06/01/16 10:21 Dose: 300 mg Gabapentin (Neurontin) 300 mg PO BID [facility] [place] Last Admin: 06/02/16 09:18 Dose: 300 mg Piperacillin Sod/Tazobactam (Sod 3.375 gm/ Sodium Chloride) 50 mls @ 100 mls/ hr IV ONETIME ONE Stop: 05/29/16 20:04 Last Admin: 05/29/16 21:10 Dose: Not Given Piperacillin Sod/Tazobactam (Sod 3.375 gm/ Sodium Chloride) 50 mls @ 100 mls/ hr IV ONETIME ONE Stop: 05/29/16 20:08 Last Admin: 05/29/16 20:05 Dose: 100 mls/hr Sodium Chloride (Normal Saline) 1,000 mls @ 500 mls/hr IV STAT [facility] [place] Last Admin: 05/29/16 20:06 Dose: 500 mls/hr Levofloxacin/Dextrose 750 mg/ (Premix) 150 mls @ 100 mls/hr IV Q24H [facility] [place] Last Admin: 05/31/16 22:47 Dose: 100 mls/hr Piperacillin Sod/Tazobactam (Sod 3.375 gm/ Sodium Chloride) 50 mls @ 100 mls/ hr IV Q6H [facility] [place] Last Admin: 06/01/16 18:20 Dose: Not Given Vancomycin HCl 1.5 gm/ Sodium (Chloride) 500 mls @ 333 mls/hr IV Q12H [facility] [place] Last Admin: 05/30/16 23:14 Dose: 333 mls/hr Vancomycin HCl 1,250 mg/ (Sodium Chloride) 250 mls @ 166.512 mls/hr IV Q12H [facility] [place] Last Admin: 06/02/16 14:41 Dose: Not Given Magnesium Sulfate 4 gm/ Premix 100 mls @ 25 mls/hr IV ONETIME ONE Stop: 05/31/16 18:35 Last Admin: 05/31/16 14:53 Dose: 25 mls/hr Levofloxacin/Dextrose 750 mg/ (Premix) 150 mls @ 100 mls/hr IV Q48H [facility] [place] Piperacillin Sod/Tazobactam (Sod 3.375 gm/ Sodium Chloride) 50 mls @ 100 mls/ hr IV Q6H [facility] [place] Last Admin: 06/02/16 11:30 Dose: 100 mls/hr Levothyroxine Sodium (Synthroid) 200 mcg PO [id number]@0730 [facility] [place] Last Admin: 06/01/16 06:49 Dose: 200 mcg Levothyroxine Sodium (Synthroid) 300 mcg PO MoFr@0730 [facility] [place] Levothyroxine Sodium (Synthroid) 200 mcg PO [id number] [facility] [place] Last Admin: 06/02/16 06:54 Dose: 200 mcg Losartan Potassium (Cozaar) 100 mg PO DAILY [facility] [place] Last Admin: 06/02/16 09:14 Dose: 100 mg Methylprednisolone Sodium Succinate (Solu-Medrol) 125 mg IVPUSH Q8H [facility] [place] Last Admin: 06/01/16 18:20 Dose: Not Given Methylprednisolone Sodium Succinate (Solu-Medrol) 125 mg IVPUSH Q8HR [facility] [place] Last Admin: 06/02/16 05:25 Dose: 125 mg Multivitamins/Minerals (Prosight) 1 tab PO DAILY [facility] [place] Last Admin: 06/02/16 09:18 Dose: 1 tab Non-Formulary Medication (Levothyroxine Sodium) 200 mcg PO ASDIRECTED [facility] [place] Non-Formulary Medication (Potassium Gluconate [Potassium]) 99 mg PO DAILY [facility] [place] Last Admin: 05/30/16 11:05 Dose: Not Given Non-Formulary Medication (Fentanyl [Fentanyl]) 12 mcg TD ASDIRECTED PRN PRN Reason: Pain Potassium Gluconate ([Potassium] 99 Mg) 99 each PO DAILY [facility] [place] Last Admin: 06/02/16 09:19 Dose: 99 each Sertraline HCl (Zoloft) 100 mg PO BID [facility] [place] Last Admin: 06/01/16 10:20 Dose: 100 mg Sertraline HCl (Zoloft) 200 mg PO DAILY [facility] [place] Last Admin: 06/02/16 09:19 Dose: 200 mg Spironolactone (Aldactone) 25 mg PO DAILY [facility] [place] Last Admin: 06/02/16 09:14 Dose: 25 mg Vancomycin HCl (Pharmacy To Dose - Vancomycin) 1 dose .XX ASDIRECTED [facility] [place] Warfarin Sodium (Coumadin) 2.5 mg PO DAILY@1400 [facility] [place] Last Admin: 05/31/16 13:10 Dose: 2.5 mg Warfarin Sodium (Coumadin) 2 mg PO DAILY@1400 [facility] [place] Warfarin Sodium (Coumadin Ask) 1 each PO DAILY@1400 [facility] [place] Last Admin: 06/01/16 15:50 Dose: Not Given Warfarin Sodium (Coumadin) 1 mg PO 06/01/16@1400 [facility] [place] Stop: 06/01/16 14:01 Last Admin: 06/01/16 15:50 Dose: Not Given - Exam Lungs: Rhonchi, Other (Increased work of breathing noted.) Cardiovascular: Regular Rate, Regular Rhythm Abdomen: no tenderness - Problem List & Annotations (1) Pneumonia SNOMED Code(s): 746741225 Code(s): J18.9 - PNEUMONIA, UNSPECIFIED ORGANISM Status: Acute Current Visit: Yes Qualifiers: Pneumonia type: due to unspecified organism Laterality: bilateral Lung location: unspecified part of lung Qualified Code(s): J18.9 - Pneumonia, unspecified organism (2) Stasis ulcer Status: Acute Current Visit: Yes - Problem List Review Problem List Initiated/Reviewed/Updated: Yes - My Orders Last 24 Hours: My Active Orders 06/02/16 12:44 Morphine [Morphine 20 MG/ML Soln] 10 mg PO Q2H PRN 06/02/16 12:45 Finley Catheter Insertion [Insert Urinary Catheter] [OM.PC] Q24H Urinary Catheter Assessment [RC] ASDIRECTED - Plan Plan:: admit see orders I confirmed code level III status with son and daughter in law. Edvin Medrano MD 05/30/2016 I am concerned that she may have pulmonary edema echo ordered lasix 60 mg IV now monitor lab aspiration precautions cruz Medrano MD 05/31/2016: I am concerned that she may be aspirating. She seems to be too weak to have a strong cough. I spoke with Claudy larkin with respiratory therapy he will consult regarding appropriate pulmonary toilet. Chest x-ray in a.m. I spoke with family. Prognosis is very guarded. Edvin Medrano MD 06/01/2016: I reviewed her chest x-ray from this morning. Improvement if any appears minimal. I discussed with her daughter the guarded prognosis. Modified barium swallow is planned. Speech pathology consult planned. We discussed the potential of going to comfort measures if she does not show improvement in the next 2 days. Her daughter states that she has expressed the sentiment quotient I am ready to " Edvin Medrano MD 06/02/2016 I discussed with the patient going to comfort care. I discussed this also with family members. They're all in agreement. She states that she wants to pass quickly. I advised that her prognosis is very poor. I advised her recovery is not impossible but unlikely. We decided to go to comfort measures. See orders. We discussed Finley catheter for comfort. The patient would like a Finley catheter. Discussed also the possibility of going home to . Will discuss again tomorrow and if and make a decision based somewhat on her clinical status that time. 06/03/2016: She is on comfort measures. I discussed this case with discharge planning personnel. After further discussion with family it has been determined that she will likely be discharged tomorrow on hospice. Edvin Medrano MD
[2016-06-03] MEDS: Albuterol/Ipratropium 3.0-0.5 MG/3 ML Neb Soln NEB PRN (16:27)
--- NOTE | 2016-06-03 17:20 | ECHO ---
The echocardiogram report can be seen in this patient's EMR in the Reports section. RUTH
[2016-06-04] MEDS ORDERED: Bisacodyl 10 MG Supp RECTAL PRN (09:39)
--- NOTE | 2016-06-04 09:42 | PCM.PN ---
- General Info Date of Service: 06/04/16 Subjective Update: She is very lethargic. Her speech is not understandable. She has a few muttering sounds as if she's trying speak. Occasionally I can understand a word or 2. She has very minimal by mouth intake. She has been very lethargic. She's had no bowel movement for several days. When questioned she states that her abdomen feels uncomfortable. - Patient Data Vitals - most recent: Last Vital Signs Temp 96.2 F 06/03/16 13:07 Pulse 84 06/04/16 04:15 Resp 28 H 06/04/16 04:15 BP 185/79 H 06/04/16 04:15 Pulse Ox 92 L 06/04/16 09:25 Weight - most recent: 62.7 kg I&O - last 24 hours: Intake & Output 06/03/16 06/04/16 06/04/16 22:59 06:59 14:59 Intake Total 100 0 Output Total 325 250 Balance -225 -250 Med Orders - Current: Current Medications Acetaminophen (Tylenol) 650 mg PO Q4H PRN PRN Reason: Pain (Mild 1-3)/fever Last Admin: 05/30/16 23:27 Dose: 650 mg Albuterol/Ipratropium (Duoneb 3.0-0.5 Mg/3 Ml) 3 ml NEB Q4HRRT PRN PRN Reason: sob/wheezing Last Admin: 06/03/16 16:27 Dose: 3 ml Bisacodyl (Dulcolax) 5 mg PO DAILY PRN PRN Reason: Constipation Last Admin: 06/01/16 21:27 Dose: 5 mg Docusate Sodium (Colace) 100 mg PO BID [facility] Last Admin: 06/03/16 23:56 Dose: Not Given Fentanyl (Duragesic) 12 mcg TRDERM Q72H [facility] Last Admin: 06/03/16 05:42 Dose: 12 mcg Morphine Sulfate (Morphine 20 Mg/Ml Soln) 10 mg PO Q2H PRN PRN Reason: Pain Ondansetron HCl (Zofran Odt) 4 mg PO Q4H PRN PRN Reason: nausea, able to take PO Last Admin: 05/30/16 07:06 Dose: 4 mg Temazepam (Restoril) 15 mg PO BEDTIME PRN PRN Reason: Sleep Discontinued Medications Hydrocodone Bitart/Acetaminophen ([place] 325-10 Mg) 1 tab PO ONETIME ONE Stop: 05/29/16 19:06 Last Admin: 05/29/16 20:27 Dose: Not Given Hydrocodone Bitart/Acetaminophen ([place] 325-10 Mg) 1 tab PO Q6H PRN PRN Reason: pain Albuterol/Ipratropium (Duoneb 3.0-0.5 Mg/3 Ml) 3 ml NEB ONETIME ONE Stop: 05/29/16 19:39 Last Admin: 05/29/16 19:58 Dose: 3 ml Albuterol/Ipratropium (Duoneb 3.0-0.5 Mg/3 Ml) 3 ml NEB Q4H [facility] Last Admin: 06/03/16 09:30 Dose: 3 ml Docusate Sodium (Colace) 100 mg PO BID PRN PRN Reason: Constipation Furosemide (Lasix) 40 mg PO DAILY [facility] Last Admin: 06/01/16 10:54 Dose: Not Given Furosemide (Lasix) 60 mg IVPUSH NOW ONE Stop: 05/30/16 13:09 Last Admin: 05/30/16 13:33 Dose: 60 mg Furosemide (Lasix) 20 mg PO DAILY [facility] Last Admin: 06/02/16 09:18 Dose: 20 mg Gabapentin (Neurontin) 300 mg PO DAILY [facility] Last Admin: 06/01/16 10:21 Dose: 300 mg Gabapentin (Neurontin) 300 mg PO BID [facility] Last Admin: 06/02/16 09:18 Dose: 300 mg Piperacillin Sod/Tazobactam (Sod 3.375 gm/ Sodium Chloride) 50 mls @ 100 mls/ hr IV ONETIME ONE Stop: 05/29/16 20:04 Last Admin: 05/29/16 21:10 Dose: Not Given Piperacillin Sod/Tazobactam (Sod 3.375 gm/ Sodium Chloride) 50 mls @ 100 mls/ hr IV ONETIME ONE Stop: 05/29/16 20:08 Last Admin: 05/29/16 20:05 Dose: 100 mls/hr Sodium Chloride (Normal Saline) 1,000 mls @ 500 mls/hr IV STAT [facility] Last Admin: 05/29/16 20:06 Dose: 500 mls/hr Levofloxacin/Dextrose 750 mg/ (Premix) 150 mls @ 100 mls/hr IV Q24H [facility] Last Admin: 05/31/16 22:47 Dose: 100 mls/hr Piperacillin Sod/Tazobactam (Sod 3.375 gm/ Sodium Chloride) 50 mls @ 100 mls/ hr IV Q6H [facility] Last Admin: 06/01/16 18:20 Dose: Not Given Vancomycin HCl 1.5 gm/ Sodium (Chloride) 500 mls @ 333 mls/hr IV Q12H [facility] Last Admin: 05/30/16 23:14 Dose: 333 mls/hr Vancomycin HCl 1,250 mg/ (Sodium Chloride) 250 mls @ 166.512 mls/hr IV Q12H [facility] Last Admin: 06/02/16 14:41 Dose: Not Given Magnesium Sulfate 4 gm/ Premix 100 mls @ 25 mls/hr IV ONETIME ONE Stop: 05/31/16 18:35 Last Admin: 05/31/16 14:53 Dose: 25 mls/hr Levofloxacin/Dextrose 750 mg/ (Premix) 150 mls @ 100 mls/hr IV Q48H [facility] Piperacillin Sod/Tazobactam (Sod 3.375 gm/ Sodium Chloride) 50 mls @ 100 mls/ hr IV Q6H [facility] Last Admin: 06/02/16 11:30 Dose: 100 mls/hr Levothyroxine Sodium (Synthroid) 200 mcg PO [id number]@0730 [facility] Last Admin: 06/01/16 06:49 Dose: 200 mcg Levothyroxine Sodium (Synthroid) 300 mcg PO MoFr@0730 [facility] Levothyroxine Sodium (Synthroid) 200 mcg PO SuTuWeThSa@0730 [facility] Last Admin: 06/02/16 06:54 Dose: 200 mcg Losartan Potassium (Cozaar) 100 mg PO DAILY [facility] Last Admin: 06/02/16 09:14 Dose: 100 mg Methylprednisolone Sodium Succinate (Solu-Medrol) 125 mg IVPUSH Q8H [facility] Last Admin: 06/01/16 18:20 Dose: Not Given Methylprednisolone Sodium Succinate (Solu-Medrol) 125 mg IVPUSH Q8HR [facility] Last Admin: 06/02/16 05:25 Dose: 125 mg Multivitamins/Minerals (Prosight) 1 tab PO DAILY [facility] Last Admin: 06/02/16 09:18 Dose: 1 tab Non-Formulary Medication (Levothyroxine Sodium) 200 mcg PO ASDIRECTED [facility] Non-Formulary Medication (Potassium Gluconate [Potassium]) 99 mg PO DAILY [facility] Last Admin: 05/30/16 11:05 Dose: Not Given Non-Formulary Medication (Fentanyl [Fentanyl]) 12 mcg TD ASDIRECTED PRN PRN Reason: Pain Potassium Gluconate ([Potassium] 99 Mg) 99 each PO DAILY [facility] Last Admin: 06/02/16 09:19 Dose: 99 each Sertraline HCl (Zoloft) 100 mg PO BID [facility] Last Admin: 06/01/16 10:20 Dose: 100 mg Sertraline HCl (Zoloft) 200 mg PO DAILY [facility] Last Admin: 06/02/16 09:19 Dose: 200 mg Spironolactone (Aldactone) 25 mg PO DAILY [facility] Last Admin: 06/02/16 09:14 Dose: 25 mg Vancomycin HCl (Pharmacy To Dose - Vancomycin) 1 dose .XX ASDIRECTED [facility] Warfarin Sodium (Coumadin) 2.5 mg PO DAILY@1400 [facility] Last Admin: 05/31/16 13:10 Dose: 2.5 mg Warfarin Sodium (Coumadin) 2 mg PO DAILY@1400 [facility] Warfarin Sodium (Coumadin Ask) 1 each PO DAILY@1400 [facility] Last Admin: 06/01/16 15:50 Dose: Not Given Warfarin Sodium (Coumadin) 1 mg PO 06/01/16@1400 [facility] Stop: 06/01/16 14:01 Last Admin: 06/01/16 15:50 Dose: Not Given Comments:: She appears lethargic lungs were auscultation heart regular rate and rhythm without murmur abdomen soft nondistended and subjective feeling of discomfort in the lower abdomen she interprets as perhaps constipation lower strum is warm her speech is not readily understandable. She does say a few words. And seems to understand verbal communication. - Problem List & Annotations (1) Pneumonia SNOMED Code(s): 025069544 Code(s): J18.9 - PNEUMONIA, UNSPECIFIED ORGANISM Status: Acute Current Visit: Yes Qualifiers: Pneumonia type: due to unspecified organism Laterality: bilateral Lung location: unspecified part of lung Qualified Code(s): J18.9 - Pneumonia, unspecified organism (2) Stasis ulcer Status: Acute Current Visit: Yes - Problem List Review Problem List Initiated/Reviewed/Updated: Yes - My Orders Last 24 Hours: My Active Orders 06/03/16 12:28 Consult to Hospice [CONS] Routine 06/04/16 09:39 Bisacodyl [Dulcolax] 10 mg RECTAL DAILY PRN Bisacodyl [Dulcolax] 10 mg RECTAL ONETIME ONE - Plan Plan:: admit see orders I confirmed code level III status with son and daughter in law. Edvin Medrano MD 05/30/2016 I am concerned that she may have pulmonary edema echo ordered lasix 60 mg IV now monitor lab aspiration precautions steroids Annalisa Medrano MD 05/31/2016: I am concerned that she may be aspirating. She seems to be too weak to have a strong cough. I spoke with Claudy larkin with respiratory therapy he will consult regarding appropriate pulmonary toilet. Chest x-ray in a.m. I spoke with family. Prognosis is very guarded. Edvin Medrano MD 06/01/2016: I reviewed her chest x-ray from this morning. Improvement if any appears minimal. I discussed with her daughter the guarded prognosis. Modified barium swallow is planned. Speech pathology consult planned. We discussed the potential of going to comfort measures if she does not show improvement in the next 2 days. Her daughter states that she has expressed the sentiment quotient I am ready to " Edvin Medrano MD 06/02/2016 I discussed with the patient going to comfort care. I discussed this also with family members. They're all in agreement. She states that she wants to pass quickly. I advised that her prognosis is very poor. I advised her recovery is not impossible but unlikely. We decided to go to comfort measures. See orders. We discussed Finley catheter for comfort. The patient would like a Finley catheter. Discussed also the possibility of going home to . Will discuss again tomorrow and if and make a decision based somewhat on her clinical status that time. 06/03/2016: She is on comfort measures. I discussed this case with discharge planning personnel. After further discussion with family it has been determined that she will likely be discharged tomorrow on hospice. Edvin Medrano MD 06/04/2016 I suspect she has some constipation. Dulcolax 10 mg suppository today and daily when necessary. Leave the is imminent I do not believe that transfer at this point is reasonable as it will inflict preventable pain and suffering on the patient continue comfort measures. Will treat constipation. Edvin Medrano MD
[2016-06-04] MEDS ORDERED: Bisacodyl 10 MG Supp RECTAL ONE (10:15)
[2016-06-04] MEDS: Docusate Sodium 100 MG Cap PO SCH ×2 (10:20→23:31)
[2016-06-04] MEDS: Albuterol/Ipratropium 3.0-0.5 MG/3 ML Neb Soln NEB PRN ×3 (11:03→20:20)
[2016-06-05] MEDS: Albuterol/Ipratropium 3.0-0.5 MG/3 ML Neb Soln NEB PRN ×2 (00:50→12:33)
[2016-06-05 04:28] VITALS: BP 164/74
[2016-06-05] MEDS ORDERED: Levothyroxine 100 MCG Tab PO SCH (07:30)
[2016-06-05] MEDS: Docusate Sodium 100 MG Cap PO SCH (11:31)
--- NOTE | 2016-06-05 11:44 | PCM.PN ---
- General Info Date of Service: 06/05/16 Admission Dx/Problem (Free Text): Admission Diagnosis/Problem Admission Diagnosis/Problem Pneumonia Functional Status: Reports: pain controlled - Review of Systems General: Reports: Weakness HEENT: Reports: no symptoms Pulmonary: Reports: cough Cardiovascular: Reports: No Symptoms Gastrointestinal: Reports: Constipation Genitourinary: Reports: incontinence Musculoskeletal: Reports: no symptoms Skin: Reports: no symptoms Neurological: Reports: No Symptoms Psychiatric: Reports: no symptoms - Patient Data Vitals - most recent: Last Vital Signs Temp 35.7 C 06/03/16 13:07 Pulse 81 06/04/16 19:00 Resp 26 H 06/04/16 19:00 BP 164/74 H 06/04/16 19:00 Pulse Ox 95 06/04/16 19:00 Weight - most recent: 62.7 kg I&O - last 24 hours: Intake & Output 06/04/16 06/05/16 06/05/16 22:59 06:59 14:59 Intake Total 0 Output Total 850 275 Balance -850 -275 Med Orders - Current: Current Medications Acetaminophen (Tylenol) 650 mg PO Q4H PRN PRN Reason: Pain (Mild 1-3)/fever Last Admin: 05/30/16 23:27 Dose: 650 mg Albuterol/Ipratropium (Duoneb 3.0-0.5 Mg/3 Ml) 3 ml NEB Q4HRRT PRN PRN Reason: sob/wheezing Last Admin: 06/05/16 00:50 Dose: 3 ml Bisacodyl (Dulcolax) 5 mg PO DAILY PRN PRN Reason: Constipation Last Admin: 06/01/16 21:27 Dose: 5 mg Bisacodyl (Dulcolax) 10 mg RECTAL DAILY PRN PRN Reason: Constipation Docusate Sodium (Colace) 100 mg PO BID [facility] Last Admin: 06/05/16 11:31 Dose: Not Given Fentanyl (Duragesic) 12 mcg TRDERM Q72H [facility] Last Admin: 06/03/16 05:42 Dose: 12 mcg Morphine Sulfate (Morphine 20 Mg/Ml Soln) 10 mg PO Q2H PRN PRN Reason: Pain Last Admin: 06/05/16 02:45 Dose: 10 mg Ondansetron HCl (Zofran Odt) 4 mg PO Q4H PRN PRN Reason: nausea, able to take PO Last Admin: 05/30/16 07:06 Dose: 4 mg Temazepam (Restoril) 15 mg PO BEDTIME PRN PRN Reason: Sleep Discontinued Medications Hydrocodone Bitart/Acetaminophen ([place] 325-10 Mg) 1 tab PO ONETIME ONE Stop: 05/29/16 19:06 Last Admin: 05/29/16 20:27 Dose: Not Given Hydrocodone Bitart/Acetaminophen ([place] 325-10 Mg) 1 tab PO Q6H PRN PRN Reason: pain Albuterol/Ipratropium (Duoneb 3.0-0.5 Mg/3 Ml) 3 ml NEB ONETIME ONE Stop: 05/29/16 19:39 Last Admin: 05/29/16 19:58 Dose: 3 ml Albuterol/Ipratropium (Duoneb 3.0-0.5 Mg/3 Ml) 3 ml NEB Q4H [facility] Last Admin: 06/03/16 09:30 Dose: 3 ml Bisacodyl (Dulcolax) 10 mg RECTAL ONETIME ONE Stop: 06/04/16 10:16 Last Admin: 06/04/16 10:21 Dose: 10 mg Docusate Sodium (Colace) 100 mg PO BID PRN PRN Reason: Constipation Furosemide (Lasix) 40 mg PO DAILY [facility] Last Admin: 06/01/16 10:54 Dose: Not Given Furosemide (Lasix) 60 mg IVPUSH NOW ONE Stop: 05/30/16 13:09 Last Admin: 05/30/16 13:33 Dose: 60 mg Furosemide (Lasix) 20 mg PO DAILY [facility] Last Admin: 06/02/16 09:18 Dose: 20 mg Gabapentin (Neurontin) 300 mg PO DAILY [facility] Last Admin: 06/01/16 10:21 Dose: 300 mg Gabapentin (Neurontin) 300 mg PO BID [facility] Last Admin: 06/02/16 09:18 Dose: 300 mg Piperacillin Sod/Tazobactam (Sod 3.375 gm/ Sodium Chloride) 50 mls @ 100 mls/ hr IV ONETIME ONE Stop: 05/29/16 20:04 Last Admin: 05/29/16 21:10 Dose: Not Given Piperacillin Sod/Tazobactam (Sod 3.375 gm/ Sodium Chloride) 50 mls @ 100 mls/ hr IV ONETIME ONE Stop: 05/29/16 20:08 Last Admin: 05/29/16 20:05 Dose: 100 mls/hr Sodium Chloride (Normal Saline) 1,000 mls @ 500 mls/hr IV STAT [facility] Last Admin: 05/29/16 20:06 Dose: 500 mls/hr Levofloxacin/Dextrose 750 mg/ (Premix) 150 mls @ 100 mls/hr IV Q24H [facility] Last Admin: 05/31/16 22:47 Dose: 100 mls/hr Piperacillin Sod/Tazobactam (Sod 3.375 gm/ Sodium Chloride) 50 mls @ 100 mls/ hr IV Q6H [facility] Last Admin: 06/01/16 18:20 Dose: Not Given Vancomycin HCl 1.5 gm/ Sodium (Chloride) 500 mls @ 333 mls/hr IV Q12H [facility] Last Admin: 05/30/16 23:14 Dose: 333 mls/hr Vancomycin HCl 1,250 mg/ (Sodium Chloride) 250 mls @ 166.512 mls/hr IV Q12H [facility] Last Admin: 06/02/16 14:41 Dose: Not Given Magnesium Sulfate 4 gm/ Premix 100 mls @ 25 mls/hr IV ONETIME ONE Stop: 05/31/16 18:35 Last Admin: 05/31/16 14:53 Dose: 25 mls/hr Levofloxacin/Dextrose 750 mg/ (Premix) 150 mls @ 100 mls/hr IV Q48H [facility] Piperacillin Sod/Tazobactam (Sod 3.375 gm/ Sodium Chloride) 50 mls @ 100 mls/ hr IV Q6H [facility] Last Admin: 06/02/16 11:30 Dose: 100 mls/hr Levothyroxine Sodium (Synthroid) 200 mcg PO SuMoTuWeThSa@0730 [facility] Last Admin: 06/01/16 06:49 Dose: 200 mcg Levothyroxine Sodium (Synthroid) 300 mcg PO MoFr@0730 [facility] Levothyroxine Sodium (Synthroid) 200 mcg PO SuTuWeThSa@0730 [facility] Last Admin: 06/02/16 06:54 Dose: 200 mcg Losartan Potassium (Cozaar) 100 mg PO DAILY [facility] Last Admin: 06/02/16 09:14 Dose: 100 mg Methylprednisolone Sodium Succinate (Solu-Medrol) 125 mg IVPUSH Q8H [facility] Last Admin: 06/01/16 18:20 Dose: Not Given Methylprednisolone Sodium Succinate (Solu-Medrol) 125 mg IVPUSH Q8HR [facility] Last Admin: 06/02/16 05:25 Dose: 125 mg Multivitamins/Minerals (Prosight) 1 tab PO DAILY [facility] Last Admin: 06/02/16 09:18 Dose: 1 tab Non-Formulary Medication (Levothyroxine Sodium) 200 mcg PO ASDIRECTED [facility] Non-Formulary Medication (Potassium Gluconate [Potassium]) 99 mg PO DAILY [facility] Last Admin: 05/30/16 11:05 Dose: Not Given Non-Formulary Medication (Fentanyl [Fentanyl]) 12 mcg TD ASDIRECTED PRN PRN Reason: Pain Potassium Gluconate ([Potassium] 99 Mg) 99 each PO DAILY [facility] Last Admin: 06/02/16 09:19 Dose: 99 each Sertraline HCl (Zoloft) 100 mg PO BID [facility] Last Admin: 06/01/16 10:20 Dose: 100 mg Sertraline HCl (Zoloft) 200 mg PO DAILY [facility] Last Admin: 06/02/16 09:19 Dose: 200 mg Spironolactone (Aldactone) 25 mg PO DAILY [facility] Last Admin: 06/02/16 09:14 Dose: 25 mg Vancomycin HCl (Pharmacy To Dose - Vancomycin) 1 dose .XX ASDIRECTED [facility] Warfarin Sodium (Coumadin) 2.5 mg PO DAILY@1400 [facility] Last Admin: 05/31/16 13:10 Dose: 2.5 mg Warfarin Sodium (Coumadin) 2 mg PO DAILY@1400 [facility] Warfarin Sodium (Coumadin Ask) 1 each PO DAILY@1400 [facility] Last Admin: 06/01/16 15:50 Dose: Not Given Warfarin Sodium (Coumadin) 1 mg PO 06/01/16@1400 [facility] Stop: 06/01/16 14:01 Last Admin: 06/01/16 15:50 Dose: Not Given - Exam Quality Assessment: supplemental oxygen General: mild distress, lethargic HEENT: Pupils equal, Pupils reactive, EOMI, Mucous membr. moist/pink Neck: supple Lungs: Decreased breath sounds Cardiovascular: Regular Rate, Regular Rhythm Abdomen: bowel sounds present, no tenderness (Female) Exam: Deferred Back Exam: other (not examined) Extremities: edema, other (R leg markedly larger , apparently chronic, though more so per family. no heat or tenderness) - Problem List & Annotations (1) Aspiration pneumonia SNOMED Code(s): 830090204 Code(s): J69.0 - PNEUMONITIS DUE TO INHALATION OF FOOD AND VOMIT Status: Acute Current Visit: Yes - Problem List Review Problem List Initiated/Reviewed/Updated: Yes - Plan Plan:: admit see orders I confirmed code level III status with son and daughter in law. Edvin Medrano MD 05/30/2016 I am concerned that she may have pulmonary edema echo ordered lasix 60 mg IV now monitor lab aspiration precautions steroids Annalisa Medrano MD 05/31/2016: I am concerned that she may be aspirating. She seems to be too weak to have a strong cough. I spoke with Claudy larkin with respiratory therapy he will consult regarding appropriate pulmonary toilet. Chest x-ray in a.m. I spoke with family. Prognosis is very guarded. Edvin Medrano MD 06/01/2016: I reviewed her chest x-ray from this morning. Improvement if any appears minimal. I discussed with her daughter the guarded prognosis. Modified barium swallow is planned. Speech pathology consult planned. We discussed the potential of going to comfort measures if she does not show improvement in the next 2 days. Her daughter states that she has expressed the sentiment quotient I am ready to " Edvin Medrano MD 06/02/2016 I discussed with the patient going to comfort care. I discussed this also with family members. They're all in agreement. She states that she wants to pass quickly. I advised that her prognosis is very poor. I advised her recovery is not impossible but unlikely. We decided to go to comfort measures. See orders. We discussed Finley catheter for comfort. The patient would like a Finley catheter. Discussed also the possibility of going home to . Will discuss again tomorrow and if and make a decision based somewhat on her clinical status that time. 06/03/2016: She is on comfort measures. I discussed this case with discharge planning personnel. After further discussion with family it has been determined that she will likely be discharged tomorrow on hospice. Edvin Medrano MD 06/04/2016 I suspect she has some constipation. Dulcolax 10 mg suppository today and daily when necessary. Leave the is imminent I do not believe that transfer at this point is reasonable as it will inflict preventable pain and suffering on the patient continue comfort measures. Will treat constipation. Edvin Medrano MD
--- NOTE | 2016-06-05 12:35 | PCM.DCSUM1 ---
Discharge Summary - Discharge Data Discharge Date: 06/05/16 Discharge Disposition: DC/Tfer to Hospice - Home 49 Condition: Poor - Discharge Diagnosis/Problem(s) (1) Aspiration pneumonia SNOMED Code(s): 063722840 ICD Code: J69.0 - PNEUMONITIS DUE TO INHALATION OF FOOD AND VOMIT Status: Acute Current Visit: Yes - Patient Summary/Data Consults: Consultations 05/30/16 14:09 Consult to Speech Language Pathology [[employer] Evaluation and Treatment] [CONS] Routine 06/03/16 12:28 Consult to Hospice [CONS] Routine - Patient Instructions Diet, Other: sips and chipsas tolerated Activity: Bedrest Driving: Do Not Drive Showering/Bathing: No Showering - Discharge Plan Home Medications: Home Meds Ascorbate Calcium [Vitamin C] 500 mg PO DAILY 08/15/13 [History] Calcium Carb & Citrate/Vit D3 [Calcium + Vitamin D3 Caplet] 2 each PO BID [History] Docusate Sodium [Colace] 100 mg PO BID 08/15/13 [History] Furosemide [Lasix] 40 mg PO DAILY 08/15/13 [History] Gabapentin [Neurontin] 300 mg PO BID 08/15/13 [History] Losartan [Cozaar] 100 mg PO DAILY 08/15/13 [History] MV-Mn/Iron/FA/Herbal Cmplx#[id number] [Vitamin D3 Complete Caplet] 1 tab PO DAILY 08/15 [History] Potassium Gluconate [Potassium] 99 mg PO DAILY 08/15/13 [History] Sertraline [Zoloft] 200 mg PO DAILY 08/15/13 [History] Warfarin [Coumadin] 2.5 mg PO BEDTIME 08/15/13 [History] Spironolactone [Aldactone] 25 mg PO DAILY 10/08/13 [History] Metoprolol Tartrate [Lopressor] 25 mg PO BID 07/18/14 [History] Levothyroxine Sodium [Unithroid] 200 mcg PO ASDIRECTED 11/23/15 [History] Gabapentin [Neurontin] 300 mg PO DAILY 03/07/16 [History] Hydrocodone/Acetaminophen [Hydrocodon-Acetaminophn 10-325] 1 tab PO QID [History] Levothyroxine Sodium 300 mcg PO MOFR@0730 03/07/16 [History] Multivitamin with Minerals [Multiple Vitamin] 1 tab PO DAILY 03/07/16 [History] Mv-Mn/FA/Vit K/Lycop/Lut/Zeaxa [Ocuvite Eye + Multi Tablet] 1 tab PO DAILY 03/07 [History] fentaNYL [Fentanyl] 12 mcg TD Q72H 03/07/16 [History] Albuterol [Ventolin HFA] 2 puff INH Q4H PRN 05/29/16 [History] Hydrocodone/Acetaminophen [[place] 10-325 Tablet] 10 - 325 mg PO Q4H PRN 06/01/16 [History] Levothyroxine Sodium [Levoxyl] 200 mcg PO SUTUWETHSA@0730 06/01/16 [History] Forms: ED Department Discharge Referrals: Rudolph Randhawa MD [Primary Care Provider] - - Discharge Summary/Plan Comment DC Time >30 min.: Yes Discharge Summary/Plan Comment: [facility] with aspiration which has been chronic. She has failed to rally here and is essentially terminal with no expected benefit from further inpatient care. Family is attuned to this situation and agreeable to home discharge with hospice care - Patient Data Vitals - Most Recent: Last Vital Signs Temp 35.7 C 06/03/16 13:07 Pulse 81 06/04/16 19:00 Resp 26 H 06/04/16 19:00 BP 164/74 H 06/04/16 19:00 Pulse Ox 95 06/04/16 19:00 Weight - Most Recent: 62.7 kg I&O - Last 24 hours: Intake & Output 06/04/16 06/05/16 06/05/16 22:59 06:59 14:59 Intake Total 0 Output Total 850 275 Balance -850 -275 Med Orders - Current: Current Medications Acetaminophen (Tylenol) 650 mg PO Q4H PRN PRN Reason: Pain (Mild 1-3)/fever Last Admin: 05/30/16 23:27 Dose: 650 mg Albuterol/Ipratropium (Duoneb 3.0-0.5 Mg/3 Ml) 3 ml NEB Q4HRRT PRN PRN Reason: sob/wheezing Last Admin: 06/05/16 00:50 Dose: 3 ml Bisacodyl (Dulcolax) 5 mg PO DAILY PRN PRN Reason: Constipation Last Admin: 06/01/16 21:27 Dose: 5 mg Bisacodyl (Dulcolax) 10 mg RECTAL DAILY PRN PRN Reason: Constipation Docusate Sodium (Colace) 100 mg PO BID [facility] Last Admin: 06/05/16 11:31 Dose: Not Given Fentanyl (Duragesic) 12 mcg TRDERM Q72H [facility] Last Admin: 06/03/16 05:42 Dose: 12 mcg Morphine Sulfate (Morphine 20 Mg/Ml Soln) 10 mg PO Q2H PRN PRN Reason: Pain Last Admin: 06/05/16 02:45 Dose: 10 mg Ondansetron HCl (Zofran Odt) 4 mg PO Q4H PRN PRN Reason: nausea, able to take PO Last Admin: 05/30/16 07:06 Dose: 4 mg Temazepam (Restoril) 15 mg PO BEDTIME PRN PRN Reason: Sleep Discontinued Medications Hydrocodone Bitart/Acetaminophen ([place] 325-10 Mg) 1 tab PO ONETIME ONE Stop: 05/29/16 19:06 Last Admin: 05/29/16 20:27 Dose: Not Given Hydrocodone Bitart/Acetaminophen ([place] 325-10 Mg) 1 tab PO Q6H PRN PRN Reason: pain Albuterol/Ipratropium (Duoneb 3.0-0.5 Mg/3 Ml) 3 ml NEB ONETIME ONE Stop: 05/29/16 19:39 Last Admin: 05/29/16 19:58 Dose: 3 ml Albuterol/Ipratropium (Duoneb 3.0-0.5 Mg/3 Ml) 3 ml NEB Q4H [facility] Last Admin: 06/03/16 09:30 Dose: 3 ml Bisacodyl (Dulcolax) 10 mg RECTAL ONETIME ONE Stop: 06/04/16 10:16 Last Admin: 06/04/16 10:21 Dose: 10 mg Docusate Sodium (Colace) 100 mg PO BID PRN PRN Reason: Constipation Furosemide (Lasix) 40 mg PO DAILY [facility] Last Admin: 06/01/16 10:54 Dose: Not Given Furosemide (Lasix) 60 mg IVPUSH NOW ONE Stop: 05/30/16 13:09 Last Admin: 05/30/16 13:33 Dose: 60 mg Furosemide (Lasix) 20 mg PO DAILY [facility] Last Admin: 06/02/16 09:18 Dose: 20 mg Gabapentin (Neurontin) 300 mg PO DAILY [facility] Last Admin: 06/01/16 10:21 Dose: 300 mg Gabapentin (Neurontin) 300 mg PO BID [facility] Last Admin: 06/02/16 09:18 Dose: 300 mg Piperacillin Sod/Tazobactam (Sod 3.375 gm/ Sodium Chloride) 50 mls @ 100 mls/ hr IV ONETIME ONE Stop: 05/29/16 20:04 Last Admin: 05/29/16 21:10 Dose: Not Given Piperacillin Sod/Tazobactam (Sod 3.375 gm/ Sodium Chloride) 50 mls @ 100 mls/ hr IV ONETIME ONE Stop: 05/29/16 20:08 Last Admin: 05/29/16 20:05 Dose: 100 mls/hr Sodium Chloride (Normal Saline) 1,000 mls @ 500 mls/hr IV STAT [facility] Last Admin: 05/29/16 20:06 Dose: 500 mls/hr Levofloxacin/Dextrose 750 mg/ (Premix) 150 mls @ 100 mls/hr IV Q24H [facility] Last Admin: 05/31/16 22:47 Dose: 100 mls/hr Piperacillin Sod/Tazobactam (Sod 3.375 gm/ Sodium Chloride) 50 mls @ 100 mls/ hr IV Q6H [facility] Last Admin: 06/01/16 18:20 Dose: Not Given Vancomycin HCl 1.5 gm/ Sodium (Chloride) 500 mls @ 333 mls/hr IV Q12H [facility] Last Admin: 05/30/16 23:14 Dose: 333 mls/hr Vancomycin HCl 1,250 mg/ (Sodium Chloride) 250 mls @ 166.512 mls/hr IV Q12H [facility] Last Admin: 06/02/16 14:41 Dose: Not Given Magnesium Sulfate 4 gm/ Premix 100 mls @ 25 mls/hr IV ONETIME ONE Stop: 05/31/16 18:35 Last Admin: 05/31/16 14:53 Dose: 25 mls/hr Levofloxacin/Dextrose 750 mg/ (Premix) 150 mls @ 100 mls/hr IV Q48H [facility] Piperacillin Sod/Tazobactam (Sod 3.375 gm/ Sodium Chloride) 50 mls @ 100 mls/ hr IV Q6H [facility] Last Admin: 06/02/16 11:30 Dose: 100 mls/hr Levothyroxine Sodium (Synthroid) 200 mcg PO SuMoTuWeThSa@0730 [facility] Last Admin: 06/01/16 06:49 Dose: 200 mcg Levothyroxine Sodium (Synthroid) 300 mcg PO MoFr@0730 [facility] Levothyroxine Sodium (Synthroid) 200 mcg PO SuTuWeThSa@0730 [facility] Last Admin: 06/02/16 06:54 Dose: 200 mcg Losartan Potassium (Cozaar) 100 mg PO DAILY [facility] Last Admin: 06/02/16 09:14 Dose: 100 mg Methylprednisolone Sodium Succinate (Solu-Medrol) 125 mg IVPUSH Q8H [facility] Last Admin: 06/01/16 18:20 Dose: Not Given Methylprednisolone Sodium Succinate (Solu-Medrol) 125 mg IVPUSH Q8HR [facility] Last Admin: 06/02/16 05:25 Dose: 125 mg Multivitamins/Minerals (Prosight) 1 tab PO DAILY [facility] Last Admin: 06/02/16 09:18 Dose: 1 tab Non-Formulary Medication (Levothyroxine Sodium) 200 mcg PO ASDIRECTED [facility] Non-Formulary Medication (Potassium Gluconate [Potassium]) 99 mg PO DAILY [facility] Last Admin: 05/30/16 11:05 Dose: Not Given Non-Formulary Medication (Fentanyl [Fentanyl]) 12 mcg TD ASDIRECTED PRN PRN Reason: Pain Potassium Gluconate ([Potassium] 99 Mg) 99 each PO DAILY [facility] Last Admin: 06/02/16 09:19 Dose: 99 each Sertraline HCl (Zoloft) 100 mg PO BID [facility] Last Admin: 06/01/16 10:20 Dose: 100 mg Sertraline HCl (Zoloft) 200 mg PO DAILY [facility] Last Admin: 06/02/16 09:19 Dose: 200 mg Spironolactone (Aldactone) 25 mg PO DAILY [facility] Last Admin: 06/02/16 09:14 Dose: 25 mg Vancomycin HCl (Pharmacy To Dose - Vancomycin) 1 dose .XX ASDIRECTED [facility] Warfarin Sodium (Coumadin) 2.5 mg PO DAILY@1400 [facility] Last Admin: 05/31/16 13:10 Dose: 2.5 mg Warfarin Sodium (Coumadin) 2 mg PO DAILY@1400 [facility] Warfarin Sodium (Coumadin Ask) 1 each PO DAILY@1400 [facility] Last Admin: 06/01/16 15:50 Dose: Not Given Warfarin Sodium (Coumadin) 1 mg PO 06/01/16@1400 [facility] Stop: 06/01/16 14:01 Last Admin: 06/01/16 15:50 Dose: Not Given *Q Meaningful Use (DIS) - VTE *Q VTE Criteria *Q: - Stroke *Q Stroke Criteria *Q: - AMI *Q AMI Criteria *Q:
== END 2016-06-05 14:45 | disposition hospice, home (50) | DRG 179 ==
LOC: MW.ED 16:57 → MW.MS 19:41
PROVIDERS: ADMIT Family Medicine; ATTEND Family Medicine
PROC: 0T2BX0Z Change Drainage Device in Bladder, External Approach (ICD-10-PCS; principal; 2016-06-02)
DX: J18.9 Pneumonia, unspecified organism (principal); I48.91 Unspecified atrial fibrillation; K21.9 Gastro-esophageal reflux disease without esophagitis; F41.9 Anxiety disorder, unspecified; K75.9 Inflammatory liver disease, unspecified; J69.0 Pneumonitis due to inhalation of food and vomit; I83.009 Varicose veins of unspecified lower extremity with ulcer of unspecified site; R53.83 Other fatigue; K59.00 Constipation, unspecified; Z95.0 Presence of cardiac pacemaker; Z85.118 Personal history of other malignant neoplasm of bronchus and lung; R60.9 Edema, unspecified; Z79.899 Other long term (current) drug therapy; Z79.01 Long term (current) use of anticoagulants; Z51.5 Encounter for palliative care; Z91.040 Latex allergy status; Z88.8 Allergy status to other drugs, medicaments and biological substances
CPT/HCPCS: 36415; 51703; 71010; 71010-26; 71020; 71020-26; 74230; 74230-26; 80048; 80053; 80202; 81001; 83605; 83735; 83880; 84439; 84443; 85025; 85610; 87070; 87205; 87804; 92526-GN; 92610-GN; 92611-GN; 93306; 94640; 94664; 96374; 99284; 99285-25; A9270-GY; J1940; J1956; J2543; J2930; J3370; J3475; J7040; J7050